=== PATIENT | male | born 1960 | race Caucasian/White ===

== ENCOUNTER → 2016-04-13 | Outpatient (REF) | payer MEDICAID ==
[~2016-04-13] MED LIST: IBUP200C PO; NICO14PA EXT; NORCOTAB PO
== END ==
LOC: M LAB REF 17:59
PROVIDERS: ATTEND Internal Medicine Medical Oncology
DX: C34.90 Malignant neoplasm of unspecified part of unspecified bronchus or lung (principal)

== ENCOUNTER → 2016-05-11 | Outpatient (REF) | payer MEDICARE, MEDICAID | LOC: M LAB REF 17:05 | PROVIDERS: ATTEND Internal Medicine Medical Oncology | DX: C34.90 Malignant neoplasm of unspecified part of unspecified bronchus or lung (principal) ==

== ENCOUNTER → 2016-05-17 | Outpatient (CLI) | payer MEDICARE, MEDICAID ==
[~2016-05-17] MED LIST changes: +ISOVUE-370 76% 100ML VIAL (Q9967) As Ordered ONE
--- NOTE | 2016-05-17 15:05 | REP ---
CT CHEST WITH CONTRAST: 05/17/2016. Clinical history: Lung cancer restaging. Comparison: 12/31/2015, 10/06/2015. Technique: Bolus of 75 ml Isovue 370, scanning through the chest and MIP reformatting with coronal and sagittal reconstructions provided. Findings: Multiple lung nodules, most of which have decreased in size, for example two in the left upper lung zone which now measure 4 mm and 5.8 mm, previously 9.6 and 10 mm respectively. Other nodules in both lungs similarly have decreased in size with the superior segment right lower lobe, 7.5 mm nodule, previously 8.4 mm. Right upper lobe peripherally on image 21 along the posterior axillary line measuring about 9.4 mm, previously 7.4 mm. The 13 mm spiculated nodule in the right upper lobe in the same general region now measures only 12 mm. No effusion, pleural thickening, pleural based plaque or mass. There is no pneumothorax or pneumomediastinum. The heart size is not grossly enlarged. No pericardial thickening or effusion. The aorta without aneurysm or dissection. No pathologic sized mediastinal or hilar adenopathy. Indwelling right subclavian catheter as before, tip in SVC. Thymic remnant in the anterior-superior mediastinum as before. Sternum, manubrium, medial clavicles, scapulae, small portions of the humeral heads, visualized ribs and the thoracic spine without focal lesion. Upper abdomen: The spleen is absent with surgical clips nearby and the pancreas grossly intact. Almost all the liver is included and shows no mass, focal lesion or biliary dilatation. Some folds in the gallbladder near its fundus are noted without calcified stone or mass. Adrenal glands are stable. Impression: Multiple metastatic nodules in the lung mendoza. Almost all of these are smaller than on the previous study. The only exception is a peripheral right upper lobe nodule as described in detail above. There is no effusion, pneumothorax, pneumomediastinum or pathologic sized mediastinal adenopathy. No other finding or interval change. Unreviewed
== END ==
LOC: M RAD 13:14
PROVIDERS: ATTEND Nurse Practitioner Family
DX: C34.90 Malignant neoplasm of unspecified part of unspecified bronchus or lung (principal)
CPT/HCPCS: 71260; 81001; 81050; 84156; Q9967

== ENCOUNTER → 2016-05-27 | Outpatient (REF) | payer MEDICARE, MEDICAID ==
[~2016-05-27] MED LIST changes: -ISOVUE-370 76% 100ML VIAL (Q9967) As Ordered ONE
[2016-05-27 12:52] LABS: ANION GAP 8 MEQ/L (8-16); BLOOD UREA NITROGEN 18 MG/DL (7-18); CALCIUM LEVEL 8.9 MG/DL (8.5-10.1); CARBON DIOXIDE LEVEL 25 MEQ/L (21-32); CHLORIDE LEVEL 109 MEQ/L (98-107); CREATININE FOR GFR 0.85 MG/DL (0.70-1.30); GLOMERULAR FILTRATION RATE > 60.0 (>56); GLUCOSE, FASTING 84 MG/DL (70-105); POTASSIUM SERUM 4.6 MEQ/L (3.5-5.1); SODIUM LEVEL 142 MEQ/L (136-145)
== END ==
LOC: M SFHCPLAZ 12:09
PROVIDERS: ATTEND Nurse Practitioner Family
DX: I10 Essential (primary) hypertension (principal)

== ENCOUNTER 2016-06-08 17:57 | Inpatient (IN) | payer MEDICARE, MEDICAID ==
[~2016-06-08] VITALS: Ht 162.6 cm; Wt 59.5 kg
--- NOTE | 2016-06-08 18:58 | REP ---
CT Head without contrast HISTORY: Altered mental status COMPARISON: None There is no intraparenchymal hemorrhage, acute infarct, mass or midline shift. The ventricular system is normal in appearance. There is no extra cerebral collection. There is no fracture. The visualized sinuses are clear. IMPRESSION: There is no intracranial lesion. Signed by Rik Elizabeth MD 06/08/2016 06:49 P
[2016-06-08] MEDS ORDERED: NS 1,000 ML IV ONE (19:15)
[2016-06-08 19:36] LABS: BASO # 0.1 K/mm3 (0.0-0.2); EOS # 0.2 K/mm3 (0.0-0.50); EOS % 1.3 % (0.0-3.0); LARGE UNSTAINED CELL # 0.2 K/mm3 (0.0-0.4); LARGE UNSTAINED CELL % 1.3 % (0.0-4.0); LYMPH # 1.7 K/mm3 (1.5-4.5); LYMPH % 12.2 % (24.0-44.0); MEAN CORPUSCULAR HEMOGLOBIN 33.5 pg (27.0-33.0); MEAN CORPUSCULAR HGB CONC 34.9 g/dl (32.0-36.5); MEAN CORPUSCULAR VOLUME 96.1 fl (80.0-96.0); MONO # 1.2 K/mm3 (0.0-0.8); MONO % 9.5 % (0.0-5.0); NEUTROPHILS # 9.3 K/mm3 (1.8-7.7); NEUTROPHILS % 74.6 % (36.0-66.0); PLATELET COUNT, AUTOMATED 242 k/mm3 (150-450); RED CELL DISTRIBUTION WIDTH 13.2 % (11.5-14.5); WHITE BLOOD COUNT 12.4 K/mm3 (4.0-10.0)
[2016-06-08 19:41] LABS: VENOUS BASE EXCESS -2.1 (-2.0-2.0); VENOUS O2 SATURATION 84.5 % (60.0-80.0); VENOUS PARTIAL PRESSURE CO2 42.4 mmHg (38.0-50.0); VENOUS STANDARD HCO3 22.4 MEQ/L; VENOUS TOTAL CO2 24.6 MEQ/L (24.0-28.0)
[2016-06-08 20:13] LABS: CONTROL LINE INT CTR LINE PRESENT; METHADONE URINE NEGATIVE (NEGATIVE); TRICYCLIC ANTIDEPRESS URINE NEGATIVE (NEGATIVE)
[2016-06-08 20:28] LABS: ALBUMIN 3.8 GM/DL (3.2-5.2); ALBUMIN/GLOBULIN RATIO 1.19 (1.00-1.93); ALKALINE PHOSPHATASE 91 U/L (45-117); ALT/SGPT 18 U/L (12-78); ANION GAP 8 MEQ/L (8-16); AST/SGOT 12 U/L (15-37); BILIRUBIN,DIRECT 0.1 MG/DL (0.0-0.2); BILIRUBIN,TOTAL 0.4 MG/DL (0.2-1.0); BLOOD UREA NITROGEN 19 MG/DL (7-18); CALCIUM LEVEL 8.5 MG/DL (8.5-10.1); CARBON DIOXIDE LEVEL 24 MEQ/L (21-32); CHLORIDE LEVEL 108 MEQ/L (98-107); CREATININE FOR GFR 0.86 MG/DL (0.70-1.30); GLOMERULAR FILTRATION RATE > 60.0 (>56); GLUCOSE, FASTING 100 MG/DL (70-105); POTASSIUM SERUM 3.8 MEQ/L (3.5-5.1); SODIUM LEVEL 140 MEQ/L (136-145)
[2016-06-08] MEDS ORDERED: LISI40TAB PO (21:40)
[2016-06-08] MEDS ORDERED: OXYC-517 PO (21:40)
[2016-06-09] VITALS (8 sets, daily range): BP systolic 137–179; BP diastolic 85–99
[2016-06-09] MEDS ORDERED: oxyCODONE 5MG TAB PO PRN (00:30)
[2016-06-09] MEDS: hydrALAZINE INJ 20 MG/ML VIAL IV SCH ×2 (04:51→10:00)
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
[2016-06-09] MEDS: LISINOPRIL 40 MG TAB PO SCH (08:35)
--- NOTE | 2016-06-09 08:39 | IPNPDOC ---
Subjective Date Seen The patient was seen on 06/09/16. Subjective Chief Complaint/HPI The patient is a 55-year-old male admitted with a reason for visit of Altered Mental Status. Events since last encounter Pt sleeping but wakes to voice. Confused. Inappropriate responses to questions. Denies pain. Denies SOB. Is not able to state why he is in the hospital. Pulmonary: Denies: Dyspnea Cardiovascular: Denies: Chest Pain Gastrointestinal: Denies: Abdominal Pain Objective Physical Examination General Exam: Positive: Alert, No Acute Distress ENT Exam: Positive: Atraumatic Neck Exam: Positive: Supple, Negative: JVD Chest Exam: Positive: Clear to auscultation Heart Exam: Positive: Rate Normal, Regular Rhythm Abdomen Exam: Positive: Normal bowel sounds, Soft, Negative: Tenderness Extremity Exam: Negative: Edema Neuro Exam: Positive: Sensation Intact, Strength at 5/5 X4 ext Psych Exam: Positive: Other (Confused. Inappropriate responses to questions. Is not able to state why he is in the hospital.) Assessment /Plan Problems (1) Altered mental status Status: Acute Problem Specific Plan: Consult Specialist, Monitor Clinically, Repeat Labs Problem Text: Head CT in the ER was negative. Pt had an MRI brain in December 2015 that was read as negative. Consult neurology. I spoke to Dr Roman who will see the pt. He advises EEG and MRI brain. (2) HTN (hypertension) Status: Chronic Problem Specific Plan: Monitor Clinically Problem Text: On Lisinopril 40 mg daily. On Hydralazine 10 mg IV q 6 hrs to hold if SBP <160. (3) Lung cancer Status: Chronic Problem Specific Plan: Monitor Clinically Problem Text: H/O adenocarcinoma small cell lung cancer. Pt follows with oncology has been receiving chemo. (4) Elevated TSH Status: Acute Problem Specific Plan: Monitor Clinically, Repeat Labs Problem Text: TSH was elevated at 6.930. Was 5.980 in April and was WNL at 1.850 in January 2016. ?acute phase reactant? Plan/VTE VTE Prophylaxis Ordered?: No VS, I&O, 24H, Fishbone Vital Signs/I&O Vital Signs Date Time Temp Pulse Resp B/P Pulse Ox O2 Delivery O2 Flow Rate FiO2 06/09/16 05:36 169/85 06/09/16 04:00 97.2 72 18 94 Room Air I&O- Last 24 Hours up to 6 AM 06/09/16 06:00 Intake Total 1000 ml Output Total 725 ml Balance 275 ml Laboratory Data 24H LABS Laboratory Tests 2 06/08/16 19:26: Acetaminophen Level < 2.0L, Aspartate Amino Transf (AST/SGOT) 12L, Alanine Aminotransferase (ALT/SGPT) 18, Alkaline Phosphatase 91, Total Bilirubin 0.4, Direct Bilirubin 0.1, Albumin 3.8, Albumin/Globulin Ratio 1.19, Ammonia < 10, Anion Gap 8, White Blood Count 12.4H, Red Blood Count 4.38, Hemoglobin 14.7, Hematocrit 42.1, Mean Corpuscular Volume 96.1H, Mean Corpuscular Hemoglobin 33.5H, Mean Corpuscular Hemoglobin Concent 34.9, Red Cell Distribution Width 13.2, Platelet Count 242, Neutrophils (%) (Auto) 74.6H, Lymphocytes (%) (Auto) 12.2L, Monocytes (%) (Auto) 9.5H, Eosinophils (%) (Auto) 1.3, Basophils (%) ( Auto) 1.0, Neutrophils # (Auto) 9.3H, Lymphocytes # (Auto) 1.7, Monocytes # ( Auto) 1.2H, Eosinophils # (Auto) 0.2, Basophils # (Auto) 0.1, Blood Gas Bicarbonate Standard 22.4, Calcium Level 8.5, Creatine Kinase MB 1.3, Creatine Kinase MB Relative Index 1.51, Ethyl Alcohol Level < 0.003, Glomerular Filtration Rate > 60.0, Lactic Acid (Sepsis) 1.3, Large Unclassified Cells # 0.2 , Large Unclassified Cells % 1.3, Salicylates Level 2.9L, Thyroid Stimulating Hormone (TSH) 6.930H, Total Creatine Kinase 86, Total Protein 7.0, Troponin I < 0.02, Venous Blood Base Excess -2.1L, Venous Blood pH 7.358, Venous Blood Partial Pressure CO2 42.4, Venous Blood Partial Pressure O2 46.0, Venous Blood Total Carbon Dioxide 24.6, Venous Blood HCO3 23.3, Venous Blood Oxygen Saturation 84.5H 06/08/16 19:34: Urine Amphetamines Screen NEGATIVE, Urine Benzodiazepines Screen NEGATIVE, Urine Opiates Screen POSITIVEH, Urine Barbiturates Screen NEGATIVE, Urine Cannabinoids Screen NEGATIVE, Urine Cocaine Metabolite Screen NEGATIVE, Urine Methadone Screen NEGATIVE, Urine Tricyclic Antidepressants NEGATIVE CBC/BMP Laboratory Tests 2/28/17 19:26 Red Blood Count 4.38, Mean Corpuscular Volume 96.1 H, Mean Corpuscular Hemoglobin 33.5 H, Mean Corpuscular Hemoglobin Concent 34.9, Red Cell Distribution Width 13.2, Neutrophils (%) (Auto) 74.6 H, Lymphocytes (%) (Auto) 12.2 L, Monocytes (%) (Auto) 9.5 H, Eosinophils (%) (Auto) 1.3, Basophils (%) ( Auto) 1.0, Neutrophils # (Auto) 9.3 H, Lymphocytes # (Auto) 1.7, Monocytes # ( Auto) 1.2 H, Eosinophils # (Auto) 0.2, Basophils # (Auto) 0.1 Microbiology Microbiology 06/08/16 Blood Culture, Received Pending 06/08/16 Influenza Virus Type A Antigen - Final, Complete 06/08/16 Influenza Virus Type B Antigen - Final, Complete Augusto Gilbert Jun 09, 2016 08:39
[2016-06-09 08:41] LABS: BASO # 0.1 K/mm3 (0.0-0.2); BASO % 0.7 % (0.0-1.0); EOS # 0.2 K/mm3 (0.0-0.50); EOS % 1.4 % (0.0-3.0); LARGE UNSTAINED CELL # 0.3 K/mm3 (0.0-0.4); LARGE UNSTAINED CELL % 2.3 % (0.0-4.0); LYMPH # 1.8 K/mm3 (1.5-4.5); LYMPH % 16.9 % (24.0-44.0); MEAN CORPUSCULAR HEMOGLOBIN 31.4 pg (27.0-33.0); MEAN CORPUSCULAR HGB CONC 33.3 g/dl (32.0-36.5); MEAN CORPUSCULAR VOLUME 94.2 fl (80.0-96.0); MONO # 0.7 K/mm3 (0.0-0.8); MONO % 6.8 % (0.0-5.0); NEUTROPHILS # 7.7 K/mm3 (1.8-7.7); NEUTROPHILS % 71.9 % (36.0-66.0); PLATELET COUNT, AUTOMATED 237 k/mm3 (150-450); RED CELL DISTRIBUTION WIDTH 12.8 % (11.5-14.5); WHITE BLOOD COUNT 10.7 K/mm3 (4.0-10.0)
[2016-06-09 08:54] LABS: ALBUMIN 3.6 GM/DL (3.2-5.2); ALBUMIN/GLOBULIN RATIO 1.16 (1.00-1.93); ALKALINE PHOSPHATASE 90 U/L (45-117); ALT/SGPT 17 U/L (12-78); ANION GAP 10 MEQ/L (8-16); AST/SGOT 17 U/L (15-37); BILIRUBIN,TOTAL 0.6 MG/DL (0.2-1.0); BLOOD UREA NITROGEN 13 MG/DL (7-18); CALCIUM LEVEL 8.6 MG/DL (8.5-10.1); CARBON DIOXIDE LEVEL 23 MEQ/L (21-32); CHLORIDE LEVEL 111 MEQ/L (98-107); CREATININE FOR GFR 0.66 MG/DL (0.70-1.30); GLOMERULAR FILTRATION RATE > 60.0 (>56); GLUCOSE, FASTING 87 MG/DL (70-105); POTASSIUM SERUM 3.9 MEQ/L (3.5-5.1); SODIUM LEVEL 144 MEQ/L (136-145); TOTAL PROTEIN 6.7 GM/DL (6.4-8.2)
--- NOTE | 2016-06-09 08:56 | REP ---
TWO VIEW CHEST: Two views of the chest are performed and compared to prior study of 07/17/2013. I see no evidence of acute infiltrate. Small subtle nodular opacities are seen in the upper lobes, as seen on recent CT scan of 05/17/2016. Heart is mildly enlarged and there is pulmonary venous hypertension. Mediastinal silhouette is unremarkable. Left MediPort catheter is seen with the tip in the superior vena cava. There are mild degenerative changes of the spine. Metallic clips are seen in the left upper quadrant of the abdomen. IMPRESSION: Mild cardiomegaly and pulmonary venous hypertension without evidence of acute infiltrate. Signed by Chano Villafuerte MD 06/09/2016 05:15 P
--- NOTE | 2016-06-09 10:44 | ECGEPIP ---
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
--- NOTE | 2016-06-09 13:47 | REP ---
MR BRAIN WITHOUT AND WITH CONTRAST: HISTORY: Lung carcinoma. Contrast: ProHance 12.4 mL. COMPARISON: 12/26/2015 Small areas of increased signal intensity on diffusion and T2-weighted images are present in the left temporal and parietal lobes. These are decreased in signal intensity on ADC images and are consistent with acute infarctions. There is no hemorrhage. Scattered punctate areas of increased signal intensity on T2-weighted images are present in the periventricular and subcortical white matter. This represents small vessel ischemic disease. There is no intraparenchymal mass or midline shift. There is no abnormal enhancement. The ventricular system and cortical sulci are dilated consistent with minimal volume loss. There is no extracerebral collection. Mucosal thickening is present in the left maxillary sinus. IMPRESSION: 1. There are small acute infarctions in the left temporal and parietal lobes. There is no hemorrhage. 2. Minimal small vessel ischemic disease. 3. Minimal volume loss. Signed by Rik Elizabeth MD 06/09/2016 01:51 P
[2016-06-09 15:50] LABS: CHOLESTEROL LEVEL 241 MG/DL (<200); TRIGLYCERIDES LEVEL 66 MG/DL (<150)
[2016-06-09] MEDS: ATORVASTATIN 20 MG TAB PO SCH (16:09)
[2016-06-09] MEDS: amLODIPine 5 MG TAB PO SCH (16:10)
[2016-06-09] MEDS ORDERED: ENOXAPARIN 40 MG/0.4 ML SYRINGE (J1650) SC ONE (16:45)
[2016-06-09] MEDS: ASPIRIN 325 MG TAB PO SCH (16:51)
--- NOTE | 2016-06-09 17:26 | IPN ---
DATE: 06/09/2016 Chano is seen in intensive care unit (ICU) as progressive care unit (PCU) overflow. He was admitted with expressive aphasia. MRI scan has confirmed stroke in the left temporal and parietal lobes without hemorrhage. Patient has no history of atrial fibrillation. He does have active cancer which puts him at increased risk of embolism or thrombosis. PHYSICAL EXAMINATION: Vital signs are stable, blood pressure 157/97, pulse 93. No facial droop or weakness. Normal strength in the arms and legs. No pronator drift. Normal box toe cutter strength. Heart regular rate and rhythm, telemetry shows strict sinus rhythm. Lungs clear. Abdomen soft and nontender. Has expressive aphasia. He is not able to name devices such as a pen or a watch but can describe them functionally as "tell time with it" or "write with it." Per his father, who is in the room, his expressive aphasia has gotten better and he is able to speak better than he could this morning. IMPRESSION: 1. Stroke with expressive aphasia. He does have atrial fibrillation, I am not sure if this embolic or thrombotic. I am starting him on aspirin 325 mg daily, high intensity statin, and I am adjusting his blood pressure medicines for a systolic blood pressure of approximately 130-140. Speech therapy has been ordered. Neurology has been consulted. 2. Lung cancer. He has a history of non-small cell lung cancer. Getting chemotherapy from oncology in [place]. 3. Elevated thyroid stimulating hormone (TSH). Will get a free T4 as an outpatient. I would not address this while he is currently here. 4. Hyperlipidemia. We have started a high intensity statin because of his stroke. A lipid profile was drawn and it shows a low-density lipoprotein (LDL) cholesterol of 174, so high intensity statin is warranted because of that as well. Probably discharge in a day or two depending on how his speech improves.
[2016-06-10] VITALS (8 sets, daily range): BP systolic 135–180; BP diastolic 84–97
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
[2016-06-10 05:00] LABS: BASO # 0.1 K/mm3 (0.0-0.2); BASO % 1.1 % (0.0-1.0); EOS # 0.3 K/mm3 (0.0-0.50); EOS % 3.7 % (0.0-3.0); LARGE UNSTAINED CELL # 0.4 K/mm3 (0.0-0.4); LARGE UNSTAINED CELL % 4.4 % (0.0-4.0); LYMPH # 2.1 K/mm3 (1.5-4.5); LYMPH % 25.4 % (24.0-44.0); MEAN CORPUSCULAR HEMOGLOBIN 31.6 pg (27.0-33.0); MEAN CORPUSCULAR HGB CONC 33.7 g/dl (32.0-36.5); MEAN CORPUSCULAR VOLUME 93.8 fl (80.0-96.0); MONO # 0.8 K/mm3 (0.0-0.8); MONO % 10.1 % (0.0-5.0); NEUTROPHILS # 4.6 K/mm3 (1.8-7.7); NEUTROPHILS % 55.3 % (36.0-66.0); PLATELET COUNT, AUTOMATED 240 k/mm3 (150-450); RED CELL DISTRIBUTION WIDTH 12.9 % (11.5-14.5); WHITE BLOOD COUNT 8.2 K/mm3 (4.0-10.0)
[2016-06-10 05:28] LABS: ALBUMIN 3.4 GM/DL (3.2-5.2); ALBUMIN/GLOBULIN RATIO 1.03 (1.00-1.93); ALKALINE PHOSPHATASE 81 U/L (45-117); ALT/SGPT 18 U/L (12-78); ANION GAP 8 MEQ/L (8-16); AST/SGOT 17 U/L (15-37); BILIRUBIN,TOTAL 0.6 MG/DL (0.2-1.0); BLOOD UREA NITROGEN 15 MG/DL (7-18); CARBON DIOXIDE LEVEL 24 MEQ/L (21-32); CHLORIDE LEVEL 112 MEQ/L (98-107); CREATININE FOR GFR 0.72 MG/DL (0.70-1.30); GLOMERULAR FILTRATION RATE > 60.0 (>56); GLUCOSE, FASTING 87 MG/DL (70-105); POTASSIUM SERUM 3.8 MEQ/L (3.5-5.1); SODIUM LEVEL 144 MEQ/L (136-145); TOTAL PROTEIN 6.7 GM/DL (6.4-8.2)
--- NOTE | 2016-06-10 07:53 | IPNPDOC ---
Subjective Date Seen The patient was seen on 06/10/16. Subjective Chief Complaint/HPI The patient is a 55-year-old male admitted with a reason for visit of Altered Mental Status. Events since last encounter Pt still with some confusion- receptive/expressive aphasia. Denies pain, SOB, CP. Pulmonary: Denies: Dyspnea Cardiovascular: Denies: Chest Pain Gastrointestinal: Denies: Abdominal Pain Objective Physical Examination General Exam: Positive: Alert, No Acute Distress ENT Exam: Positive: Atraumatic Neck Exam: Positive: Supple, Negative: JVD Chest Exam: Positive: Clear to auscultation Heart Exam: Positive: Rate Normal, Regular Rhythm Abdomen Exam: Positive: Normal bowel sounds, Soft, Negative: Tenderness Extremity Exam: Negative: Edema Neuro Exam: Positive: Other, Sensation Intact, Strength at 5/5 X4 ext Psych Exam: Positive: Other (Confused. Inappropriate responses to questions. Receptive/expressive aphasia) Other physical findings : his expressive aphasia is much better--yesterday could not name place, watch, pen (used descriptive terms, could not name). Today names all 3. Still word substituting--"Stone" for phone Assessment /Plan Problems (1) Acute ischemic stroke Status: Acute Problem Text: 06/10 - MRI Brain: "Small acute infarctions in the left temporal and parietal lobes. No hemorrhage. Minimal small vessel ischemic disease. Minimal volume loss." Neurology following. Started on Aspirin. Will order PT/OT. Continue to advise smoking cessation. JFW: attempted to call his oncologist to update, no onco records in [facility] and pt can't name his oncologist. (2) Altered mental status Status: Acute Problem Specific Plan: Consult Specialist, Monitor Clinically, Repeat Labs Problem Text: 06/10 - MRI Brain: "Small acute infarctions in the left temporal and parietal lobes. No hemorrhage. Minimal small vessel ischemic disease. Minimal volume loss." Neurology following. Started on Aspirin. Will order PT/OT. 06/09 - Head CT in the ER was negative. Pt had an MRI brain in December 2015 that was read as negative. Consult neurology. I spoke to Dr Roman who will see the pt. He advises EEG and MRI brain. (3) HTN (hypertension) Status: Chronic Problem Specific Plan: Monitor Clinically Problem Text: 06/10 - On Lisinopril 40 mg daily. On Amlodipine 5 mg daily. ( Hydralazine was d/c'ed). 06/09 - On Lisinopril 40 mg daily. On Hydralazine 10 mg IV q 6 hrs to hold if SBP <160. (4) Lung cancer Status: Chronic Problem Specific Plan: Monitor Clinically Problem Text: H/O adenocarcinoma small cell lung cancer. Pt follows with oncology has been receiving chemo. (5) Elevated TSH Status: Acute Problem Specific Plan: Monitor Clinically, Repeat Labs Problem Text: TSH was elevated at 6.930. Was 5.980 in April and was WNL at 1.850 in January 2016. ?acute phase reactant? Plan/VTE VTE Prophylaxis Ordered?: Yes (Lovenox) VS, I&O, 24H, Fishbone Vital Signs/I&O Vital Signs Date Time Temp Pulse Resp B/P Pulse Ox O2 Delivery O2 Flow Rate FiO2 06/10/16 04:00 97.2 73 20 166/84 95 Room Air I&O- Last 24 Hours up to 6 AM 06/10/16 06:00 Intake Total 900 ml Output Total 1250 ml Balance -350 ml Laboratory Data 24H LABS Laboratory Tests 2 06/09/16 08:19: Blood Urea Nitrogen 13, Creatinine 0.66L, Sodium Level 144, Potassium Level 3.9 , Chloride Level 111H, Carbon Dioxide Level 23, Calcium Level 8.6, Aspartate Amino Transf (AST/SGOT) 17, Alanine Aminotransferase (ALT/SGPT) 17, Alkaline Phosphatase 90, Total Bilirubin 0.6, Triglycerides Level 66, Cholesterol Level 241H, HDL Cholesterol 53, LDL Cholesterol 174.8H, Total Protein 6.7, Albumin 3.6 , Albumin/Globulin Ratio 1.16, Anion Gap 10, White Blood Count 10.7H, Red Blood Count 4.49, Hemoglobin 14.1, Hematocrit 42.3, Mean Corpuscular Volume 94.2, Mean Corpuscular Hemoglobin 31.4, Mean Corpuscular Hemoglobin Concent 33.3, Red Cell Distribution Width 12.8, Platelet Count 237, Neutrophils (%) (Auto) 71.9H, Lymphocytes (%) (Auto) 16.9L, Monocytes (%) (Auto) 6.8H, Eosinophils (%) (Auto) 1.4, Basophils (%) (Auto) 0.7, Neutrophils # (Auto) 7.7, Lymphocytes # (Auto) 1.8, Monocytes # (Auto) 0.7, Eosinophils # (Auto) 0.2, Basophils # (Auto) 0.1, Cholesterol/HDL Ratio 4.547, Glomerular Filtration Rate > 60.0, Large Unclassified Cells # 0.3, Large Unclassified Cells % 2.3, Non-HDL Cholesterol ( LDL + VLDL) 188 06/10/16 04:46: Blood Urea Nitrogen 15, Creatinine 0.72, Sodium Level 144, Potassium Level 3.8, Chloride Level 112H, Carbon Dioxide Level 24, Calcium Level 8.0L, Aspartate Amino Transf (AST/SGOT) 17, Alanine Aminotransferase (ALT/SGPT) 18, Alkaline Phosphatase 81, Total Bilirubin 0.6, Total Protein 6.7, Albumin 3.4, Albumin/ Globulin Ratio 1.03, Anion Gap 8, White Blood Count 8.2, Red Blood Count 4.48, Hemoglobin 14.2, Hematocrit 42.0, Mean Corpuscular Volume 93.8, Mean Corpuscular Hemoglobin 31.6, Mean Corpuscular Hemoglobin Concent 33.7, Red Cell Distribution Width 12.9, Platelet Count 240, Neutrophils (%) (Auto) 55.3, Lymphocytes (%) (Auto) 25.4, Monocytes (%) (Auto) 10.1H, Eosinophils (%) (Auto) 3.7H, Basophils (%) (Auto) 1.1H, Neutrophils # (Auto) 4.6, Lymphocytes # (Auto) 2.1, Monocytes # (Auto) 0.8, Eosinophils # (Auto) 0.3, Basophils # (Auto) 0.1, Glomerular Filtration Rate > 60.0, Large Unclassified Cells # 0.4, Large Unclassified Cells % 4.4H CBC/BMP Laboratory Tests 06/09/16 08:19 Calcium Level 8.6, Aspartate Amino Transf (AST/SGOT) 17, Alanine Aminotransferase (ALT/SGPT) 17, Alkaline Phosphatase 90, Total Bilirubin 0.6, Triglycerides Level 66, Cholesterol Level 241 H, HDL Cholesterol 53, LDL Cholesterol 174.8 H, Total Protein 6.7, Albumin 3.6, Red Blood Count 4.49, Mean Corpuscular Volume 94.2, Mean Corpuscular Hemoglobin 31.4, Mean Corpuscular Hemoglobin Concent 33.3, Red Cell Distribution Width 12.8, Neutrophils (%) (Auto ) 71.9 H, Lymphocytes (%) (Auto) 16.9 L, Monocytes (%) (Auto) 6.8 H, Eosinophils (%) (Auto) 1.4, Basophils (%) (Auto) 0.7, Neutrophils # (Auto) 7.7, Lymphocytes # (Auto) 1.8, Monocytes # (Auto) 0.7, Eosinophils # (Auto) 0.2, Basophils # (Auto) 0.1 06/10/16 04:46 Calcium Level 8.0 L, Aspartate Amino Transf (AST/SGOT) 17, Alanine Aminotransferase (ALT/SGPT) 18, Alkaline Phosphatase 81, Total Bilirubin 0.6, Total Protein 6.7, Albumin 3.4, Red Blood Count 4.48, Mean Corpuscular Volume 93.8, Mean Corpuscular Hemoglobin 31.6, Mean Corpuscular Hemoglobin Concent 33.7 , Red Cell Distribution Width 12.9, Neutrophils (%) (Auto) 55.3, Lymphocytes (% ) (Auto) 25.4, Monocytes (%) (Auto) 10.1 H, Eosinophils (%) (Auto) 3.7 H, Basophils (%) (Auto) 1.1 H, Neutrophils # (Auto) 4.6, Lymphocytes # (Auto) 2.1, Monocytes # (Auto) 0.8, Eosinophils # (Auto) 0.3, Basophils # (Auto) 0.1 Microbiology Microbiology 06/08/16 Blood Culture - Preliminary, Resulted No growth after 24 hours . All specim... 06/08/16 Influenza Virus Type A Antigen - Final, Complete 06/08/16 Influenza Virus Type B Antigen - Final, Complete Augusto Gilbert Jun 10, 2016 07:53 Sadiq Leal MD Jun 10, 2016 15:39
[2016-06-10] MEDS: LISINOPRIL 40 MG TAB PO SCH (08:07)
[2016-06-10] MEDS: amLODIPine 5 MG TAB PO SCH (08:07)
[2016-06-10] MEDS: ASPIRIN 325 MG TAB PO SCH (08:07)
[2016-06-10] MEDS: ATORVASTATIN 20 MG TAB PO SCH (08:07)
[2016-06-10] MEDS ORDERED: ENOXAPARIN 40 MG/0.4 ML SYRINGE (J1650) SC SCH (09:00)
--- NOTE | 2016-06-10 10:25 | REP ---
DUPLEX CAROTID SONOGRAPHY: HISTORY: Stroke. FINDINGS: Antegrade flow is observed in both vertebral arteries. RIGHT CAROTID: The right common carotid artery shows mild diffuse intimal thickening. There is minimal mixed plaquing in the bulb and proximal ICA on the right side. Color flow and spectral Doppler interrogation are unremarkable on the right. VELOCITY CHART RIGHT CAROTID: Right CCA PSV 99 cm/s Right ICA PSV 59 EDV 30 Right ECA PSV 86 Right ICA/CCA ratio normal 0.6 IMPRESSION: 0-15% category narrowing in the right ICA. LEFT CAROTID: There is mild diffuse intimal thickening in the common carotid artery on the left side. Mild mixed plaquing is seen circumferentially in the bulb and proximal ICA on two-dimensional scanning on the left side. Color flow and spectral Doppler interrogation are unremarkable on the left. VELOCITY CHART LEFT CAROTID: Left CCA PSV 108 cm/s Left ICA PSV 67 EDV LIZ 29 Left ECA PSV 127 Left ICA/CCA ratio normal 0.6 IMPRESSION: 0-15% category narrowing in the left ICA by Doppler velocity criteria. Signed by Ifeanyi Day MD 06/10/2016 01:28 P
[2016-06-10] MEDS ORDERED: SLF 3 ML SYR IV PRN (13:30)
[2016-06-10] MEDS: SLF 3 ML SYR IV SCH ×2 (15:09→21:06)
--- NOTE | 2016-06-10 16:00 | REP ---
MRA BRAIN WITHOUT CONTRAST: HISTORY: Infarction. 3D [id number] MR angiography was performed at the level of the [place]. There is no aneurysm or arteriovenous malformation. Mild arthrosclerotic disease involves the cavernous left internal carotid artery. There is loss of the normal hyperintense signal in a segment of a proximal branch of the left middle cerebral artery. This is secondary to severe stenosis. There is loss of the normal hyperintense signal in a proximal branch of the left middle cerebral artery approximately 1 cm from it origin consistent with occlusion. Remaining major intracranial vessels are patent. The left vertebral artery is dominant. IMPRESSION:1. There is no aneurysm or arteriovenous malformation. 2. Atherosclerotic disease as described above. Signed by Rik Elizabeth MD 06/10/2016 04:06 P
--- NOTE | 2016-06-10 18:09 | ECHO ---
DATE OF PROCEDURE: 06/09/2016 REFERRING PHYSICIAN: Dr. Leal HEIGHT: 163 cm WEIGHT: 62 kg. DIMENSIONS: IVS: 1.3 LV: 4.5 LVPW: 1.3 LA: 4.0 Aorta: 3.3 FINDINGS: The study is of good technical quality. Left ventricle is of normal size and systolic function with estimated ejection fraction (EF) 65-70%. Right ventricle is normal size and function. Both atria appear normal. Aortic, tricuspid and pulmonic valves appear normal. Mitral valve exhibits mild thickening in anterior mitral leaflet in the area where anterior mitral leaflet touches ventricular septum during systole. Mobility of the leaflets is preserved. No pericardial effusion is noted. Inferior vena cava is upper limits of normal values, but appropriately collapses with respiration. Aortic root is normal. Aortic arch and abdominal aorta were not well seen. Doppler interrogation reveals no significant aortic disease. There is trace mitral insufficiency and trace tricuspid insufficiency. Calculated pulmonary artery pressure is within normal limits. Pulmonic valve is functionally competent. CONCLUSIONS: 1. Study is of good technical quality. 2. Normal left ventricle (LV) size and systolic function, grade 1 diastolic dysfunction. 3. No hemodynamically significant valvular disease. 4. Probably normal central venous pressure and pulmonary artery pressure. 5. Mild thickening in anterior mitral leaflet, unlikely to be of clinical significance. COMMENTS: Subacute bacterial endocarditis (SBE) prophylaxis is not recommended.
[2016-06-11] MEDS: SLF 3 ML SYR IV SCH (03:54)
[2016-06-11 04:00] VITALS: BP 150/94
[2016-06-11 05:47] LABS: ALBUMIN 3.4 GM/DL (3.2-5.2); ALBUMIN/GLOBULIN RATIO 0.94 (1.00-1.93); ALKALINE PHOSPHATASE 85 U/L (45-117); ALT/SGPT 19 U/L (12-78); ANION GAP 7 MEQ/L (8-16); AST/SGOT 19 U/L (15-37); BILIRUBIN,TOTAL 0.4 MG/DL (0.2-1.0); BLOOD UREA NITROGEN 17 MG/DL (7-18); CALCIUM LEVEL 8.2 MG/DL (8.5-10.1); CARBON DIOXIDE LEVEL 25 MEQ/L (21-32); CHLORIDE LEVEL 110 MEQ/L (98-107); GLOMERULAR FILTRATION RATE > 60.0 (>56); GLUCOSE, FASTING 92 MG/DL (70-105); SODIUM LEVEL 142 MEQ/L (136-145)
[2016-06-11 05:54] LABS: BASO # 0.1 K/mm3 (0.0-0.2); EOS # 0.4 K/mm3 (0.0-0.50); EOS % 3.9 % (0.0-3.0); LARGE UNSTAINED CELL # 0.5 K/mm3 (0.0-0.4); LARGE UNSTAINED CELL % 5.2 % (0.0-4.0); LYMPH # 2.2 K/mm3 (1.5-4.5); LYMPH % 22.7 % (24.0-44.0); MEAN CORPUSCULAR HEMOGLOBIN 31.6 pg (27.0-33.0); MEAN CORPUSCULAR HGB CONC 33.1 g/dl (32.0-36.5); MEAN CORPUSCULAR VOLUME 95.4 fl (80.0-96.0); MONO # 1.1 K/mm3 (0.0-0.8); NEUTROPHILS # 5.2 K/mm3 (1.8-7.7); NEUTROPHILS % 55.3 % (36.0-66.0); PLATELET COUNT, AUTOMATED 234 k/mm3 (150-450); RED CELL DISTRIBUTION WIDTH 12.9 % (11.5-14.5); WHITE BLOOD COUNT 9.5 K/mm3 (4.0-10.0)
[2016-06-11 08:00] VITALS: BP 163/89
[2016-06-11] MEDS ORDERED: ASPI325T PO (08:09)
[2016-06-11] MEDS ORDERED: AMLO5TAB2 PO (08:09)
[2016-06-11] MEDS ORDERED: ATOR1TAB21 PO (08:09)
[2016-06-11] MEDS ORDERED: LEVO25TA5 PO (08:26)
[2016-06-11] MEDS: ASPIRIN 325 MG TAB PO SCH (09:45)
[2016-06-11] MEDS: LISINOPRIL 40 MG TAB PO SCH (09:45)
[2016-06-11] MEDS: ATORVASTATIN 20 MG TAB PO SCH (09:45)
[2016-06-11 09:46] VITALS: BP 163/89
[2016-06-11] MEDS: amLODIPine 5 MG TAB PO SCH (09:46)
--- NOTE | 2016-06-11 13:26 | EEG ---
DATE OF PROCEDURE: 06/10/2016 DIAGNOSIS: Altered mental status. EEG NUMBER: [id number] HISTORY: Patient is a 55-year-old man who was admitted at [facility] due to sudden onset of speech difficulty. The patient had expressive aphasia. This EEG was done to rule out epileptic potential. Current list of his medications was not provided. TECHNICAL DESCRIPTION: This digital EEG was recorded by 21 scalp, ear and two EKG electrodes and was reviewed in bipolar and referential montages following reformatting in 10-20 International Electrode Placement System. INTERPRETATION: The patient was noted to be in awake and drowsy states during this EEG. Resting awake background consisted of 9 Hz alpha activity measuring 15 - 30 microvolts in amplitude, which was symmetric and reactive to eye opening. Attenuation of posterior dominant was seen during transition into drowsiness. No sleep was achieved. Hyperventilation could not be performed as the patient is unable to follow commands. Photic stimulation remained unremarkable. EKG revealed normal sinus rhythm. No focal, lateralizing or epileptiform abnormalities were seen. No clinical or electrographic seizures were recorded. Excessive muscle artifact was seen in bilateral frontal and temporal head regions. CONCLUSION This EEG in awake and drowsy states is within normal limits. Excessive muscle artifact was noted as described above.
--- NOTE | 2016-06-12 08:20 | DSES ---
DATE OF ADMISSION: 06/08/2016 DATE OF DISCHARGE: 06/11/2016 BRIEF HISTORY AND PHYSICAL: The patient is a 55-year-old patient of [facility] who presented with altered mental status. He has a history of adenocarcinoma and small cell lung cancer undergoing chemotherapy which he had on the morning of the admission. He presented with inability to answer questions clearly and difficulty understanding questions or following commands. PAST MEDICAL HISTORY: Significant for: Lung cancer and adenocarcinoma small cell, chronic pain on chronic narcotic analgesics followed by Dr. Shukla. Hypertension. Hyperlipidemia. Pertinent labs on admission: White count 12.4, hemoglobin 14.7, platelets 242,000. Sodium 140, potassium 3.8, BUN 19, creatinine 0.86. Liver enzymes were normal. TSH is 6.93. Toxicology screen was positive for opiates and a low dose amount of salicylates which were expected. A CT of the head was unremarkable. Chest x-ray was negative. HOSPITAL COURSE: The patient was admitted for altered mental status which ultimately was determined to be expressive and receptive aphagia secondary to an acute left temporal and parietal lobe infarct. HOSPITAL COURSE: 1. Acute left temporal and parietal lobe infarct. He was admitted to PCU monitored on telemetry. He had no events on telemetry, no arrhythmia. No atrial fibrillation. He underwent workup that included MRI of the brain that revealed small acute infarctions in the left temporal and parietal lobes with no hemorrhage, minimal small vessel ischemic disease and minimal volume loss. Carotid ultrasound showed 0 to 15% narrowing bilaterally without clinically significant stenosis. MRA of the brain showed no aneurysms or AV malformations. He has atherosclerotic disease with loss of normal hyperintense signal in the proximal branch of left MCA 1 cm from its origin consistent with occlusion. Echocardiogram showed normal left ventricular size and systolic function, grade 1 diastolic dysfunction. No hemodynamically significant valvular disease, probably normal central venous pressure and pulmonary artery pressure, mild thickening of the anterior mitral leaflet unlikely to be of clinical significance. The patient was seen by neurology. Full dose aspirin was recommended as well as high intensity statin therapy and amlodipine has been added for his blood pressure, however, it is recommended that for the first few days post CVA, his blood pressure should remain between 140 and 160 which it has essentially done. His blood pressure at the time of discharge is 150/94. He will be discharged home on lisinopril 40 mg daily, Norvasc 5 mg daily and follow up early next week with [facility] at which point, blood pressure medications should be adjusted to achieve tighter blood pressure control per guidelines. 2. Hyperlipidemia. The patient has a known history of hyperlipidemia but because she is undergoing chemotherapy, the risk of using statin therapy in this patient was felt to be higher than the benefit at that time. However, now that he has had an acute stroke, statin therapy has been initiated with high-dose atorvastatin 80 mg daily and his liver enzymes will need to be monitored. 3. History of lung cancer undergoing chemotherapy per Dr. Shukla. 4. Chronic pain. He is on oxycodone chronically as an outpatient and this has been continued per previous dosing. 5. Elevated TSH. Review of his blood work shows that he had an elevated TSH in April and now has another elevated TSH at this point confirming hypothyroidism and he will be started on a low dose of levothyroxine and he will need followup of his levels in 6-8 weeks after initiation of the levothyroxine. DISPOSITION: He is stable for discharge home. He will have a public health nurse referral to assure that he is able to manage his medications and he will have speech therapy to further work on his expressive and receptive aphasia which have improved but are still present to some extent. MEDICATIONS: - lisinopril 40 mg daily - Norvasc 5 mg day - Lipitor 80 mg daily - aspirin 325 mg daily - oxycodone 5 mg every 4 hours as needed for pain Tests that are still pending. EEG was performed yesterday. Results are pending. He should follow up with [facility] early next week. Followup with neurology per their office. DISCHARGE DIAGNOSES: 1. Acute left temporal and parietal lobe infarcts secondary to MCA occlusion. 2. Hypertension. 3. Hyperlipidemia. 4. Elevated TSH. 5. History of adenocarcinoma of the lung receiving chemotherapy. 6. Chronic pain on chronic narcotic analgesics.
== END 2016-06-11 11:10 | disposition home health service (06) | DRG 65 ==
LOC: EDBD 17:57 → M ED 20:50 → M ED INP 22:45 → M ICU 06-09 00:42 → M PCU 06-10 12:49
PROVIDERS: ADMIT Internal Medicine; ATTEND Family Medicine
DX: I63.512 Cerebral infarction due to unspecified occlusion or stenosis of left middle cerebral artery (principal); C34.90 Malignant neoplasm of unspecified part of unspecified bronchus or lung; I10 Essential (primary) hypertension; E78.5 Hyperlipidemia, unspecified; I69.320 Aphasia following cerebral infarction; G89.3 Neoplasm related pain (acute) (chronic); I48.91 Unspecified atrial fibrillation; F10.21 Alcohol dependence, in remission; R94.6 Abnormal results of thyroid function studies; F17.210 Nicotine dependence, cigarettes, uncomplicated; Z95.828 Presence of other vascular implants and grafts; Z92.21 Personal history of antineoplastic chemotherapy; Z79.899 Other long term (current) drug therapy

== ENCOUNTER → 2016-06-25 | Outpatient (REF) | payer MEDICAID ==
[~2016-06-25] MED LIST changes: +AMLO5TAB2 PO; +ASPI325T PO; +ATOR1TAB21 PO; +LEVO25TA5 PO; +LISI40TAB PO; +OXYC-517 PO
[2016-06-25 13:52] LABS: ALBUMIN 3.9 GM/DL (3.2-5.2); ALBUMIN/GLOBULIN RATIO 1.18 (1.00-1.93); ALKALINE PHOSPHATASE 92 U/L (45-117); ALT/SGPT 23 U/L (12-78); ANION GAP 13 MEQ/L (8-16); AST/SGOT 17 U/L (15-37); BILIRUBIN,TOTAL 0.4 MG/DL (0.2-1.0); BLOOD UREA NITROGEN 14 MG/DL (7-18); CARBON DIOXIDE LEVEL 24 MEQ/L (21-32); CHLORIDE LEVEL 107 MEQ/L (98-107); CREATININE FOR GFR 0.74 MG/DL (0.70-1.30); FREE T4 1.19 NG/DL (0.76-1.46); GLOMERULAR FILTRATION RATE > 60.0 (>56); GLUCOSE, FASTING 84 MG/DL (70-105); POTASSIUM SERUM 4.2 MEQ/L (3.5-5.1); SODIUM LEVEL 144 MEQ/L (136-145); TOTAL PROTEIN 7.2 GM/DL (6.4-8.2)
== END ==
LOC: M SFHCPLAZ 10:28
PROVIDERS: ATTEND Nurse Practitioner Family
DX: E78.5 Hyperlipidemia, unspecified (principal); E03.9 Hypothyroidism, unspecified

== ENCOUNTER → 2016-07-20 | Outpatient (REF) | payer MEDICARE, MEDICAID ==
[2016-07-20 20:28] LABS: FREE T4 1.14 NG/DL (0.76-1.46)
== END ==
LOC: M LAB REF 16:34
PROVIDERS: ATTEND Internal Medicine Medical Oncology
DX: C18.0 Malignant neoplasm of cecum (principal)

== ENCOUNTER → 2016-08-16 | Outpatient (REF) | payer MEDICARE, MEDICAID ==
[2016-08-16 12:21] LABS: ALBUMIN 3.6 GM/DL (3.2-5.2); ALKALINE PHOSPHATASE 77 U/L (45-117); ALT/SGPT 30 U/L (12-78); ANION GAP 6 MEQ/L (8-16); AST/SGOT 18 U/L (15-37); BILIRUBIN,TOTAL 0.5 MG/DL (0.2-1.0); BLOOD UREA NITROGEN 27 MG/DL (7-18); CALCIUM LEVEL 8.5 MG/DL (8.5-10.1); CARBON DIOXIDE LEVEL 26 MEQ/L (21-32); CHLORIDE LEVEL 110 MEQ/L (98-107); CREATININE FOR GFR 0.78 MG/DL (0.70-1.30); FREE T4 1.04 NG/DL (0.76-1.46); GLOMERULAR FILTRATION RATE > 60.0 (>56); GLUCOSE, FASTING 80 MG/DL (70-105); POTASSIUM SERUM 4.6 MEQ/L (3.5-5.1); SODIUM LEVEL 142 MEQ/L (136-145); TOTAL PROTEIN 6.6 GM/DL (6.4-8.2)
== END ==
LOC: M SFHCPLAZ 09:27
PROVIDERS: ATTEND Nurse Practitioner Family
DX: I10 Essential (primary) hypertension (principal); E03.9 Hypothyroidism, unspecified

== ENCOUNTER → 2016-08-17 | Outpatient (REF) | payer MEDICARE, MEDICAID | LOC: M LAB REF 16:29 | PROVIDERS: ATTEND Internal Medicine Medical Oncology | DX: C34.90 Malignant neoplasm of unspecified part of unspecified bronchus or lung (principal); E03.9 Hypothyroidism, unspecified ==

== ENCOUNTER → 2016-09-28 | Outpatient (REF) | payer MEDICARE, MEDICAID ==
[2016-09-28 18:04] LABS: FREE T4 1.23 NG/DL (0.76-1.46)
== END ==
LOC: M LAB REF 16:43
PROVIDERS: ATTEND Internal Medicine Medical Oncology
DX: C34.90 Malignant neoplasm of unspecified part of unspecified bronchus or lung (principal); E05.90 Thyrotoxicosis, unspecified without thyrotoxic crisis or storm

== ENCOUNTER → 2016-11-09 | Outpatient (REF) | payer MEDICARE, MEDICAID ==
[2016-11-09 19:39] LABS: FREE T4 1.2 NG/DL (0.76-1.46)
== END ==
LOC: M LAB REF 16:41
PROVIDERS: ATTEND Internal Medicine Medical Oncology
DX: C34.90 Malignant neoplasm of unspecified part of unspecified bronchus or lung (principal); Z79.899 Other long term (current) drug therapy

== ENCOUNTER → 2016-11-22 | Outpatient (REF) | payer MEDICAID, MEDICARE ==
[2016-11-22 20:48] LABS: FREE T4 1.28 NG/DL (0.76-1.46)
== END ==
LOC: M SFHCPLAZ 18:10
PROVIDERS: ATTEND Nurse Practitioner Family
DX: E03.9 Hypothyroidism, unspecified (principal)

== ENCOUNTER → 2016-12-20 | Outpatient (REF) | payer MEDICARE, MEDICAID ==
[2016-12-20 18:44] LABS: FREE T4 1.12 NG/DL (0.76-1.46)
== END ==
LOC: M LAB REF 16:43
PROVIDERS: ATTEND Internal Medicine Medical Oncology
DX: C34.90 Malignant neoplasm of unspecified part of unspecified bronchus or lung (principal); E04.9 Nontoxic goiter, unspecified

== ENCOUNTER → 2017-01-17 | Outpatient (REF) | payer MEDICARE, MEDICAID ==
[2017-01-17 17:31] LABS: FREE T4 1.11 NG/DL (0.76-1.46)
== END ==
LOC: M SFHCPLAZ 12:38
PROVIDERS: ATTEND Nurse Practitioner Family
DX: E78.5 Hyperlipidemia, unspecified (principal); E03.9 Hypothyroidism, unspecified

== ENCOUNTER → 2017-01-31 | Outpatient (REF) | payer MEDICARE ==
[2017-01-31 18:21] LABS: FREE T4 1.21 NG/DL (0.76-1.46)
== END ==
LOC: M LAB REF 16:02
PROVIDERS: ATTEND Internal Medicine Medical Oncology
DX: C34.90 Malignant neoplasm of unspecified part of unspecified bronchus or lung (principal); E04.9 Nontoxic goiter, unspecified

== ENCOUNTER → 2017-02-04 | Outpatient (CLI) | payer MEDICARE, MEDICAID ==
[~2017-02-04] MED LIST changes: +ISOVUE-370 76% 100ML VIAL (Q9967) As Ordered ONE
--- NOTE | 2017-02-04 11:04 | REP ---
CT of the chest with IV contrast for follow up of lung nodules: The patient has the following lung nodules: Image 17, left upper lobe, 6 mm, unchanged. Image 18, right upper lobe, 8 mm, unchanged. Image 22, right upper lobe, 13 mm, unchanged. Image 22, right upper lobe, 21 mm, previously 9 mm. Image 26, left upper lobe, 11 mm, previously 5 mm. Image 28, left upper lobe, 7 mm, previously 7 mm. Page 32, left upper lobe, 5 mm, previously 6 mm. Image 33, right upper lobe, 4 mm, previously 4 mm. Image 37, left upper lobe, 12 mm, previously 7 mm. Image 38, right upper lobe, 6 mm, previously 6 mm. Image 38, left upper lobe, 4 mm, previously 4 mm. Image 38, superior segment right lower lobe, 6 mm, previously 6 mm. Image 37, right upper lobe, 10 mm, 4 mm previously. Image 37, left upper lobe, 12 mm, 7 mm previously. Image 42, superior segment right lower lobe, 25 mm, previously 14 mm. Image 44, superior segment left lower lobe, 4 mm, 4 mm previously. Image 59, left lower lobe, 9 mm, There is no mediastinal or hilar adenopathy. There is no axillary adenopathy. The thoracic aorta is unremarkable. Cardiac size is normal. There is calcified vascular atheroma in the coronary arteries. There is a 15 mm nodule in the right adrenal and 80 ml nodule in the left adrenal. These are unchanged. 9 mm previously. The previous lung nodules have been re measured so that the same diameters are matched on the study. There is a 15 mm nodule right adrenal and and 18 mm nodule in the left adrenal. These are unchanged. Signed by Chano Valencia MD 02/04/2017 10:56 A
== END ==
LOC: M RAD 08:19
PROVIDERS: ATTEND Internal Medicine Medical Oncology
DX: C34.00 Malignant neoplasm of unspecified main bronchus (principal)
CPT/HCPCS: 71260; Q9967

== ENCOUNTER → 2017-03-28 | Outpatient (REF) | payer MEDICARE, MEDICAID ==
[~2017-03-28] MED LIST changes: -ISOVUE-370 76% 100ML VIAL (Q9967) As Ordered ONE
[2017-03-28 19:44] LABS: FREE T4 1.2 NG/DL (0.76-1.46)
== END ==
LOC: M LAB REF 18:17
PROVIDERS: ATTEND Internal Medicine Medical Oncology
DX: C34.90 Malignant neoplasm of unspecified part of unspecified bronchus or lung (principal); Z79.899 Other long term (current) drug therapy

== ENCOUNTER → 2017-03-28 | Outpatient (REF) | payer MEDICAID ==
[2017-03-28 14:55] LABS: ALBUMIN 3.8 GM/DL (3.2-5.2); ALBUMIN/GLOBULIN RATIO 1.19 (1.00-1.93); ALKALINE PHOSPHATASE 80 U/L (45-117); ALT/SGPT 24 U/L (12-78); ANION GAP 6 MEQ/L (8-16); AST/SGOT 18 U/L (7-37); BILIRUBIN,TOTAL 0.5 MG/DL (0.2-1.0); BLOOD UREA NITROGEN 14 MG/DL (7-18); CALCIUM LEVEL 8.9 MG/DL (8.5-10.1); CARBON DIOXIDE LEVEL 27 MEQ/L (21-32); CHLORIDE LEVEL 109 MEQ/L (98-107); CHOLESTEROL LEVEL 162 MG/DL (<200); CREATININE FOR GFR 0.73 MG/DL (0.70-1.30); FREE T4 1.12 NG/DL (0.76-1.46); GLOMERULAR FILTRATION RATE > 60.0 (>56); GLUCOSE, FASTING 78 MG/DL (70-105); POTASSIUM SERUM 4.5 MEQ/L (3.5-5.1); SODIUM LEVEL 142 MEQ/L (136-145); TRIGLYCERIDES LEVEL 85 MG/DL (<150)
== END ==
LOC: M SFHCPLAZ 11:24
PROVIDERS: ATTEND Nurse Practitioner Family
DX: E78.5 Hyperlipidemia, unspecified (principal); E03.9 Hypothyroidism, unspecified; Z12.5 Encounter for screening for malignant neoplasm of prostate

== ENCOUNTER → 2017-05-23 | Outpatient (REF) | payer MEDICARE, MEDICAID ==
[2017-05-23 20:57] LABS: FREE T4 1.06 NG/DL (0.76-1.46)
== END ==
LOC: M LAB REF 19:02
DX: C34.90 Malignant neoplasm of unspecified part of unspecified bronchus or lung (principal); Z79.899 Other long term (current) drug therapy
CPT/HCPCS: 84443

== ENCOUNTER → 2017-06-27 | Outpatient (REF) | payer MEDICARE, MEDICAID ==
[2017-06-27 16:19] LABS: ALBUMIN 4.1 GM/DL (3.2-5.2); ALBUMIN/GLOBULIN RATIO 1.32 (1.00-1.93); ALKALINE PHOSPHATASE 79 U/L (45-117); ALT/SGPT 25 U/L (12-78); ANION GAP 8 MEQ/L (8-16); AST/SGOT 20 U/L (7-37); BILIRUBIN,TOTAL 0.5 MG/DL (0.2-1.0); BLOOD UREA NITROGEN 16 MG/DL (7-18); CALCIUM LEVEL 8.9 MG/DL (8.5-10.1); CARBON DIOXIDE LEVEL 26 MEQ/L (21-32); CHLORIDE LEVEL 109 MEQ/L (98-107); CREATININE FOR GFR 0.82 MG/DL (0.70-1.30); GLOMERULAR FILTRATION RATE > 60.0 (>56); GLUCOSE, FASTING 78 MG/DL (70-100); POTASSIUM SERUM 4.4 MEQ/L (3.5-5.1); SODIUM LEVEL 143 MEQ/L (136-145); TOTAL PROTEIN 7.2 GM/DL (6.4-8.2)
== END ==
LOC: M SFHCPLAZ 14:14
DX: E03.9 Hypothyroidism, unspecified (principal); I10 Essential (primary) hypertension; E78.5 Hyperlipidemia, unspecified
CPT/HCPCS: 84443

== ENCOUNTER → 2017-08-23 | Outpatient (CLI) | payer MEDICARE, MEDICAID ==
[~2017-08-23] MED LIST changes: -AMLO5TAB2 PO; -ASPI325T PO; -ATOR1TAB21 PO; +GASTROGRAFIN SOLUTION 30ML (Q9963) As Ordered; -IBUP200C PO; +ISOVUE-370 76% 100ML VIAL (Q9967) As Ordered; -LEVO25TA5 PO; -LISI40TAB PO; -NICO14PA EXT; -NORCOTAB PO; -OXYC-517 PO
== END ==
LOC: M RAD 09:47
DX: C34.90 Malignant neoplasm of unspecified part of unspecified bronchus or lung (principal)
CPT/HCPCS: Q9963

== ENCOUNTER → 2017-10-11 | Outpatient (REF) | payer MEDICARE, MEDICAID ==
[2017-10-11 20:14] LABS: FREE T4 1.23 NG/DL (0.76-1.46)
== END ==
LOC: M LAB REF 17:24
DX: C34.11 Malignant neoplasm of upper lobe, right bronchus or lung (principal); C78.02 Secondary malignant neoplasm of left lung; C78.01 Secondary malignant neoplasm of right lung; Z51.81 Encounter for therapeutic drug level monitoring; Z79.899 Other long term (current) drug therapy
CPT/HCPCS: 84443

== ENCOUNTER → 2017-12-27 | Outpatient (REF) | payer MEDICAID, MEDICARE ==
[2017-12-27 17:45] LABS: ALBUMIN 3.6 GM/DL (3.2-5.2); ALBUMIN/GLOBULIN RATIO 1.06 (1.00-1.93); ALKALINE PHOSPHATASE 78 U/L (45-117); ALT/SGPT 21 U/L (12-78); ANION GAP 10 MEQ/L (8-16); AST/SGOT 14 U/L (7-37); BILIRUBIN,TOTAL 0.4 MG/DL (0.2-1.0); BLOOD UREA NITROGEN 15 MG/DL (7-18); CALCIUM LEVEL 8.6 MG/DL (8.5-10.1); CARBON DIOXIDE LEVEL 22 MEQ/L (21-32); CHLORIDE LEVEL 110 MEQ/L (98-107); CREATININE FOR GFR 0.78 MG/DL (0.70-1.30); FREE T4 1.05 NG/DL (0.76-1.46); GLOMERULAR FILTRATION RATE > 60.0 (>56); GLUCOSE, FASTING 70 MG/DL (70-100); POTASSIUM SERUM 4.6 MEQ/L (3.5-5.1); SODIUM LEVEL 142 MEQ/L (136-145)
== END ==
LOC: M SFHCPLAZ 14:45
DX: I10 Essential (primary) hypertension (principal); E03.9 Hypothyroidism, unspecified
CPT/HCPCS: 84443

== ENCOUNTER → 2018-01-03 | Outpatient (REF) | payer MEDICAID, MEDICARE | LOC: M LAB REF 17:38 | DX: Z51.81 Encounter for therapeutic drug level monitoring (principal); Z79.899 Other long term (current) drug therapy; C78.02 Secondary malignant neoplasm of left lung; C78.01 Secondary malignant neoplasm of right lung; C34.11 Malignant neoplasm of upper lobe, right bronchus or lung | CPT/HCPCS: 84443 ==

== ENCOUNTER → 2018-03-21 | Outpatient (CLI) | payer MEDICARE, MEDICAID | LOC: M RAD 11:15 | DX: C34.11 Malignant neoplasm of upper lobe, right bronchus or lung (principal); C78.01 Secondary malignant neoplasm of right lung | CPT/HCPCS: 71250 ==

== ENCOUNTER → 2018-04-14 | Outpatient (REF) | payer MEDICARE, MEDICAID ==
[~2018-04-14] MED LIST changes: +AMLO5TAB6 PO; +ASPI325T PO; +ATOR1TAB21 PO; -GASTROGRAFIN SOLUTION 30ML (Q9963) As Ordered; +IBUP200C PO; -ISOVUE-370 76% 100ML VIAL (Q9967) As Ordered; +LEVO25TA5 PO; +LEVO50TA5 PO; +LISI40TA PO; +NICO14PA EXT; +NORCOTAB PO; +OXYC-517 PO
[2018-04-14 13:10] LABS: ALBUMIN 3.5 GM/DL (3.2-5.2); ALT/SGPT 21 U/L (12-78); BILIRUBIN,TOTAL 0.3 MG/DL (0.2-1.0); BLOOD UREA NITROGEN 17 MG/DL (7-18); CALCIUM LEVEL 8.6 MG/DL (8.5-10.1); CARBON DIOXIDE LEVEL 25 MEQ/L (21-32); CHLORIDE LEVEL 109 MEQ/L (98-107); CHOLESTEROL LEVEL 132 MG/DL (<200); CHOLESTEROL RISK RATIO 3.567 (<5); CREATININE FOR GFR 0.73 MG/DL (0.70-1.30); FREE T4 1.08 NG/DL (0.76-1.46); GLOMERULAR FILTRATION RATE > 60.0 (>56); GLUCOSE, FASTING 87 MG/DL (70-100); HDL CHOLESTEROL 37 MG/DL (>40); LDL CHOLESTEROL 77 MG/DL (<100); NON-HDL-C 95 MG/DL; POTASSIUM SERUM 4.5 MEQ/L (3.5-5.1); SODIUM LEVEL 144 MEQ/L (136-145); TOTAL PROTEIN 6.8 GM/DL (6.4-8.2); TRIGLYCERIDES LEVEL 91 MG/DL (<150)
== END ==
LOC: M SFHCPLAZ 10:41
PROVIDERS: ATTEND Nurse Practitioner Family
DX: I10 Essential (primary) hypertension (principal); E03.9 Hypothyroidism, unspecified; E78.5 Hyperlipidemia, unspecified; Z12.5 Encounter for screening for malignant neoplasm of prostate
CPT/HCPCS: 36415; 80053; 80061; 84439; 84443; G0103

== ENCOUNTER → 2018-06-20 | Outpatient (CLI) | payer MEDICARE, MEDICAID ==
--- NOTE | 2018-06-20 20:39 | REP ---
Whole body PET CT scan for restaging of lung carcinoma: Comparison is the PET CT scan dated 05/24/[address] of the chest dated 03/21/2018. On the 03/21/[address] there were multiple lung nodules. There were progressive compared to November 23, 2017, increased in size and number. Whole body PET CT scan is performed from skull base to the upper thighs. Neck and supraclavicular areas: There is a new tiny focus slightly less than a centimeter in diameter posterior to the vocal cords with a maximal standard uptake value of 14.25, not present previously, possibly uptake in a lymph node. There are no other foci in the neck or supraclavicular areas. Chest: There is hypermetabolic uptake in all of the patient's known lung nodules with the exception of the spiculated nodule in the extreme apex of the right lung, and the too small nodules adjacent to one of the peripherally in the left upper lobe. All of the other lung nodules are hypermetabolic. There are no foci in the mediastinum or in the right or left alba or right or left axilla. There are no other foci in the chest. Abdomen, pelvis and upper thighs: There are no adrenal foci. There are no hepatic foci. The spleen is surgically absent. There are no hypermetabolic foci otherwise. Impression: There is a new tiny hypermetabolic focus in the neck posterior the vocal cords, possibly in a lymph node. There is hypermetabolic uptake in all of the patient's known lung nodules with the exception of a spiculated nodule in the right apex and too small nodules peripherally in the left upper lobe. There is no mediastinal or hilar uptake. No other uptake in the chest. There are no hypermetabolic foci in the abdomen, pelvis or upper thighs. The study is performed with 9.0 mCi of F 18 FDG. Electronically Signed by Chano Valencia MD 06/20/2018 08:30 P
== END ==
LOC: M PLARAD 11:15
PROVIDERS: ATTEND Internal Medicine Hematology & Oncology
DX: C34.11 Malignant neoplasm of upper lobe, right bronchus or lung (principal)
CPT/HCPCS: 78815; A9552

== ENCOUNTER → 2018-10-23 | Outpatient (CLI) | payer MEDICARE, MEDICAID ==
[~2018-10-23] MED LIST changes: +ASPI-1 PO; -ASPI325T PO; +BENA25CA4 PO; +ISOVUE-370 76% 100ML VIAL (Q9967) As Ordered ONE; +NICO14DI20 EXT; -NICO14PA EXT; +ONDA8TAB10 PO; +PRED10TA2 PO; +PRED50TA PO
--- NOTE | 2018-10-23 18:45 | REP ---
CT of the chest with IV contrast for restaging of lung and metastatic disease: Comparison is 03/21/2018. There are multiple lung nodules as previously. No new lung nodules are identified. The nodule in the right upper that previously measured 2.8 x 2.2 cm, today measures 3.4 x 8 2.7 cm and has increased in size. The large right lower lobe lung nodule previously measured 4.1 x 3.2 cm, and today measures 3.6 x 2.9 cm and has decreased in size. All of the other lung nodules are essentially unchanged in size. No new lung nodules are identified. No mediastinal or hilar lymph node enlargement is identified. No axillary lymph node enlargement is identified. Upper abdomen: There is a hypodense right adrenal nodule measuring 1.5 cm., unchanged. There are no hepatic lesions. 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 There are no lytic, blastic or destructive skeletal changes, as previously. Impression: Multiple lung nodules are again identified, unchanged in number. The largest nodule in the right lower lobe has decreased in size. The next largest nodule in the right upper lobe has increased in size. There are no other interval changes. Electronically Signed by Chano Valencia MD 10/23/2018 06:36 P
== END ==
LOC: M RAD 17:11
PROVIDERS: ATTEND Internal Medicine Hematology & Oncology
DX: C34.11 Malignant neoplasm of upper lobe, right bronchus or lung (principal)
CPT/HCPCS: 71260; Q9967

== ENCOUNTER → 2018-12-28 | Outpatient (REF) | payer MEDICARE, MEDICAID ==
[~2018-12-28] MED LIST changes: -ISOVUE-370 76% 100ML VIAL (Q9967) As Ordered ONE; -ONDA8TAB10 PO
[2018-12-28 19:57] LABS: FREE T4 1.2 NG/DL (0.76-1.46); THYROID STIMULATING HORMONE 4.72 uIU/ML (0.358-3.740)
== END ==
LOC: M SFHCPLAZ 15:09
PROVIDERS: ATTEND Nurse Practitioner Family
DX: E03.9 Hypothyroidism, unspecified (principal)
CPT/HCPCS: 36415; 84439; 84443; G0463

== ENCOUNTER 2019-01-23 12:06 | Emergency (ER) | payer MEDICARE, MEDICAID ==
[~2019-01-23] VITALS: Ht 162.6 cm; Wt 67.3 kg
[~2019-01-23 12:06] MED LIST changes: -BENA25CA4 PO; -ISOVUE-370 76% 100ML VIAL (Q9967) As Ordered ONE; -PRED10TA2 PO; -diphenhydrAMINE INJ 50MG/ML VIAL (J1200) As Ordered ONE
[2019-01-23] MEDS ORDERED: NS 1,000 ML IV ONE (12:30)
[2019-01-23] MEDS ORDERED: methylPREDNISolone INJ 125 MG/2 ML VIAL (J2930) IV ONE (12:30)
[2019-01-23] MEDS ORDERED: FAMOTIDINE INJ 20MG/2ML VIAL (S0028) IVP ONE (12:30)
[2019-01-23 13:02] LABS: BASO % 0.2 % (0.0-1.0); HEMATOCRIT 48.7 % (42.0-52.0); HEMOGLOBIN 16.5 g/dl (13.5-17.5); LYMPH # 0.7 10^3/uL (1.5-5.0); LYMPH % 4.5 % (24.0-44.0); MEAN CORPUSCULAR HEMOGLOBIN 32.4 pg (27.0-33.0); MEAN CORPUSCULAR HGB CONC 33.9 g/dl (32.0-36.5); MEAN CORPUSCULAR VOLUME 95.5 fl (80.0-96.0); MONO # 0.2 10^3/uL (0.0-0.8); MONO % 1.1 % (0.0-5.0); NEUTROPHILS # 13.4 10^3/uL (1.5-8.5); NEUTROPHILS % 92.6 % (36.0-66.0); PLATELET COUNT, AUTOMATED 266 10^3/uL (150-450); WHITE BLOOD COUNT 14.5 10^3/uL (4.0-10.0)
[2019-01-23 13:34] LABS: BLOOD UREA NITROGEN 14 MG/DL (7-18); CALCIUM LEVEL 8.7 MG/DL (8.5-10.1); CARBON DIOXIDE LEVEL 25 MEQ/L (21-32); CHLORIDE LEVEL 108 MEQ/L (98-107); CK-MB VALUE MASS 1.2 NG/ML (<3.6); CPK CREATINE PHOSPHOKINASE 85 U/L (39-308); CREATININE FOR GFR 0.89 MG/DL (0.70-1.30); GLOMERULAR FILTRATION RATE > 60.0 (>56); GLUCOSE, FASTING 120 MG/DL (70-100); MB/CK RELATIVE INDEX 1.41 (< OR =4); POTASSIUM SERUM 4.5 MEQ/L (3.5-5.1); SODIUM LEVEL 138 MEQ/L (136-145); TROPONIN I < 0.02 NG/ML (< 0.10)
[2019-01-23 14:41] VITALS: BP 153/101
[2019-01-23] MEDS ORDERED: PRED10TA2 PO (14:53)
[2019-01-23] MEDS ORDERED: BENA25CA4 PO (14:53)
--- NOTE | 2019-01-24 12:01 | ECGEPIP ---
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
== END 2019-01-23 15:03 | disposition home or self-care (01) ==
LOC: M ED 12:06
DX: T50.8X5A Adverse effect of diagnostic agents, initial encounter (principal); Y92.239 Unspecified place in hospital as the place of occurrence of the external cause; Y93.9 Activity, unspecified; C34.90 Malignant neoplasm of unspecified part of unspecified bronchus or lung; R51 Headache; I10 Essential (primary) hypertension; F17.200 Nicotine dependence, unspecified, uncomplicated; Z79.82 Long term (current) use of aspirin; Z79.899 Other long term (current) drug therapy; Z91.041 Radiographic dye allergy status
CPT/HCPCS: 36415; 71260; 80048; 82550; 82553; 84484; 85025; 93005; 93041; 94760; 96361; 96374; 96375; 99285; J1200; J2930; Q9967

== ENCOUNTER → 2019-01-23 | Outpatient (CLI) | payer MEDICARE, MEDICAID ==
[~2019-01-23] MED LIST changes: +ISOVUE-370 76% 100ML VIAL (Q9967) As Ordered ONE; +diphenhydrAMINE INJ 50MG/ML VIAL (J1200) As Ordered ONE
--- NOTE | 2019-01-23 13:48 | REP ---
REASON: History of lung cancer. Multiple priors were reviewed, the latest of which dated 10/23/2018. CONTRAST: 100 mL Isovue 370. There is no mediastinal or hilar adenopathy. The tip of the Mediport device is in the superior vena cava. There are no pleural or pericardial effusions. The imaged upper abdomen shows a 2 cm sized right adrenal gland nodule unchanged from not only the latest prior of 10/23/2018, but also unchanged from 03/21/2018. The imaged osseous structures show no evidence of significant change from the latest prior. Evaluation of the lung mendoza show multiple bilateral spiculated masses, the largest in the right upper lobe measures 3.8 cm and the largest in the right lower lobe measures 3.3 cm. Previously the right upper lobe mass measured 3.1 cm and the right lower lobe mass measured 3 cm. The largest left upper lobe nodule which is spiculated is unchanged from the latest prior. There is a lingular nodule which measures 1.2 cm previously this nodule measured 9 mm. IMPRESSION: Increasing size of lung nodules and masses to mention a few as described above. Other findings as described above. Electronically Signed by Otis Gonzalez DO 01/23/2019 02:16 P
== END ==
LOC: M RAD 11:11
PROVIDERS: ATTEND Internal Medicine Hematology & Oncology
DX: C34.90 Malignant neoplasm of unspecified part of unspecified bronchus or lung (principal)

== ENCOUNTER → 2019-04-19 | Outpatient (REF) | payer MEDICARE, MEDICAID ==
[~2019-04-19] MED LIST changes: +BENA25CA4 PO; +ONDA8TAB7 PO; +PRED10TA2 PO
[2019-04-19 14:25] LABS: FREE T4 1.09 NG/DL (0.76-1.46); THYROID STIMULATING HORMONE 4.53 uIU/ML (0.358-3.740)
== END ==
LOC: M SFHCPLAZ 13:32
PROVIDERS: ATTEND Nurse Practitioner Family
DX: Z12.5 Encounter for screening for malignant neoplasm of prostate (principal); I10 Essential (primary) hypertension; E03.9 Hypothyroidism, unspecified; E78.5 Hyperlipidemia, unspecified

== ENCOUNTER → 2019-04-26 | Outpatient (CLI) | payer MEDICARE, MEDICAID ==
[~2019-04-26] MED LIST changes: +ONDA8TAB10 PO; -ONDA8TAB7 PO
--- NOTE | 2019-04-26 16:16 | REP ---
CT chest without contrast: History: Restaging lung carcinoma. Comparison is made with prior CT studies the most recent which is from January 23, 2019 and October 23, 2018. CT findings: There has been significant improvement in the size of the multiple pulmonary metastatic nodules in the interval since the most recent prior study of January 24, 1928 19. One of the largest lesions which is seen in the superior segment of the right lower lobe has decreased in size from 3.5 x 3.3 cm on axial images 2.2 x 1.7 cm. The previously noted large lesion in the right apex has decreased in size from 3.8 x 2.7 cm in January 23, 2019 scan to 2.7 x 2.3 cm today. Similar decrease in the size is seen in most of the other nodules. There are several nodules which are quite small and appear morphologically unchanged. No new or larger nodule is appreciated. No hilar or mediastinal mass or adenopathy is observed. No new adrenal lesion. There is heavy vascular calcification. No bony destructive lesion. Impression: Improvement noted in multiple lung nodules. No evidence of progression. Electronically Signed by Ifeanyi aDy MD 04/26/2019 05:03 P
== END ==
LOC: M RAD 13:43
PROVIDERS: ATTEND Internal Medicine Hematology
DX: C34.11 Malignant neoplasm of upper lobe, right bronchus or lung (principal)

== ENCOUNTER → 2019-10-02 | Outpatient (CLI) | payer MEDICARE, MEDICAID ==
[~2019-10-02] MED LIST changes: +AMLO1TAB24 PO; -AMLO5TAB6 PO; +SYNT75TA PO
--- NOTE | 2019-10-02 16:55 | REP ---
REASON: History of lung carcinoma. All priors reviewed the latest 04/26/2019. The lack of intravenous contrast decreases the sensitivity of the exam. The mediastinum and pulmonary alba are unchanged. There are no pleural or pericardial effusions. There is no significant change in the appearance of the imaged upper abdomen or imaged osseous structures. Evaluation of the lung mendoza again shows numerable spiculated nodules of various sizes all of which have gotten somewhat smaller compared to the latest prior exam. No existing nodule has increased in size and there does not appear to have been interval development of a new abnormal nodule, mass, or opacity. IMPRESSION: There is evidence of continued improvement as described above. Electronically Signed by Otis Gonzalez DO 10/02/2019 05:29 P
== END ==
LOC: M RAD 14:21
PROVIDERS: ATTEND Specialist
DX: C34.90 Malignant neoplasm of unspecified part of unspecified bronchus or lung (principal)

== ENCOUNTER → 2019-12-27 | Outpatient (CLI) | payer MEDICARE, MEDICAID ==
--- NOTE | 2020-01-11 09:47 | REP ---
CT STUDY OF THE CHEST WITHOUT CONTRAST HISTORY: Lung carcinoma. COMPARISON: Chest CT is reviewed. The most recent of these is from 10/02/2019. PET CT 06/20/2018. CT FINDINGS: Lung parenchymal windows again demonstrate a metastatic pattern in multiple irregular pulmonary nodules. These are virtually all unchanged from the most recent prior study of 10/02/2019. There is a nodule in the lingular segment of the left upper lobe displayed on Page 63 of 109 in Series 201 of todays study, which measures 10 mm today, this measured 8 mm previously. This may have grown slightly. No new nodule is appreciated. The other nodules are unchanged. No hilar or mediastinal mass or adenopathy is seen. No pleural effusion is noted. The adrenals are somewhat thickened bilaterally consistent with adrenal hyperplasia. There is intrarenal nephrolithiasis in the upper pole of the left kidney. There are surgical clips in the left upper quadrant. Vascular calcification is noted along the left coronary artery distribution. 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 IMPRESSION: Metastatic pulmonary parenchymal nodules. No new nodule is seen. One nodule is slightly larger. The others are all stable. MTDD
== END ==
LOC: M RAD 13:08
PROVIDERS: ATTEND Specialist
DX: C34.91 Malignant neoplasm of unspecified part of right bronchus or lung (principal); C78.02 Secondary malignant neoplasm of left lung

== ENCOUNTER → 2020-04-08 | Outpatient (CLI) | payer MEDICARE, MEDICAID ==
--- NOTE | 2020-04-08 14:28 | RADONC.CN ---
Radiation Oncology Hx/Consult Radiation Oncology Consult Date of Service: Apr 08, 2020 Pt Identifier Chano Franklin is a 59 year old male current smoker with a long history of NSCLC dating back to 2013 when he presented with a miliary pattern of metastatic BL nodules in the absence of extrathoracic disease. The largest of which was in the RUL and was biopsied on 06/13/13 and returned adenocarcinoma ALK and EGFR negative. He has been on no less than 7 lines of systemic therapy since then, all without evidence of progression outside of the chest (each however, did not ultimately control the lung nodules). He is currently on 7th line abraxane as a single agent from 01/23/[address] chest from 01/29/20 showing stable disease with the exception of a small growing MARILOU lingular nodule measuring 1.2 cm. He is seen today for consideration of SBRT to address this nodule in this exceptional case of NSCLC. Diagnosis/Treatment History Oncologic History As above PFTs none recent, have been ordered 04/08/20 Recent imaging 03/20/20 CT chest: IMPRESSION: There are numerous metastatic pulmonary nodules bilaterally which are stable. There is 1 noncalcified pulmonary nodule in the lingular segment of the left upper lobe which is growing, now 12.5 mm in greatest diameter. This measured 8 mm on 02 October 2019. No new pulmonary nodule is seen. Pathology 06/12/13: Negative for ALK and EGFR. See complete reports from [facility]. 06/22/13711 Amendment: Electronically Signed by: Carmela Arteaga M.D. 06/22/13711 The slides were reviewed at [facility] and they agree with original diagnosis of moderately differentiated adenocarcinoma of lung. See complete consultation report. ALK and EGFR are pending, an addendum will follow. 06/14/13 786 Amendment: Electronically Signed by: Carmela Arteaga M.D. 06/14/13 [id number] FINAL DIAGNOSIS Right lung, CT guided biopsy: Positive for malignancy, consistent with moderately differentiated adenocarcinoma of lung. ALK and EGFR testing was submitted to [facility], an addendum with result will follow. See comment. COMMENT: Limited immunostains were performed to conserve tissue for ALK and E GFR testing. The tumor cells are positive for TTF-1 but not Napsin-A(only rare cells show weak staining). The positive TTF-1, in conjunction with presence of a spiculated lung mass is consistent with adenocarcinoma of lung primary. 4/TR 06/12/13 - 1327 Interval History Chano feels well overall. Has chronic left leg and back pain from an old injury which is stable. 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 He has a stable weight and appetite. Still smoking 5-10 cigarettes per day. Has quit before longest 6 months, doesn't want to make an attempt now. He has BECKFORD with heavy activities but is able to walk indefinite distance without significant SOB. Past Medical History: HPL HTN Past Surgical History: Left hip surgery 1990 Splenectomy 1990 Family History: Mother NHL Social History: 30 pack year current smoker Drinks 2 standard drinks daily Allergies / Meds Allergies: Coded Allergies: Contrast Media (Verified Allergy, Unknown, 01/30/19) Home Meds Active Scripts Oxycodone HCl (Oxycodone HCl) 5 Mg Tab, 5 MG PO Q4H PRN for pain MDD 6 for 30 Days, #160 TAB TAKE ONE TABLET EVERY 4 HOURS NEEDED FOR PAIN. Prov:SHELBY ESCOBAR MD 10/17/19 Ondansetron HCl (Ondansetron HCl) 8 Mg Tablet, 8 MG PO Q8H PRN for NAUSEA for 10 Days, #30 TAB 3 Refills TAKE ONE TABLET EVERY 8 HOURS NEEDED FOR NAUSEA. Prov:Ailin Bhatt MD 02/21/19 Atorvastatin Calcium (Atorvastatin Calcium) 20 Mg Tab, 80 MG PO DAILY, #30 TAB 1 Refill Prov:ALE MORALES PA-C 06/11/16 Aspirin (Aspirin) 325 Mg Tab, 325 MG PO DAILY, #30 TAB 0 Refills Prov:ALE MORALES PA-C 06/11/16 Amlodipine Besylate (Amlodipine Besylate) 5 Mg Tab, 5 MG PO DAILY, #30 TAB 1 Refill Prov:ALE MORALES PA-C 06/11/16 Reported Medications Levothyroxine Sodium (Synthroid) 75 Mcg Tablet, 1 TAB PO DAILY for 30 Days, #30 TAB 01/31/20 Lisinopril (Lisinopril) 40 Mg Tab, 40 MG PO DAILY, TAB 06/08/16 Review of Systems Constitutional: Denies: Chills, Fever, Night Sweats Eyes: Denies: Pain, Vision change HEENT: Denies: Head Aches, Dysphagia, Sore Throat Skin: Denies: Rash, Lesions, Bruising Pulmonary: Reports: Dyspnea; Denies: Cough Cardiovascular: Denies: Chest Pain, Palpitations, Edema Gastrointestinal: Denies: Nausea, Vomiting, Abdominal Pain, Diarrhea Genitourinary: Denies: Dysuria, Frequency, Incontinence Hematologic: Denies: Bruising, Petecchia, Enlarged Lymph Nodes Musculoskeletal: Reports: Back pain, Leg pain; Denies: Neck pain Neurological: Denies: Weakness, Numbness Psych: Reports: Mood Normal Vital Signs Ht 64" Wt 144 lb BMI 24.7 T 98.2 P 79 RR 16 BP 152/90 O2 97% Pain 3 left hip Fatigue 0 General Exam: Positive: Alert, Cooperative, No Acute Distress Eye Exam: Positive: PERRLA, EOMI ENT EXAM: Positive: Mucous membr. moist/pink, Pharynx Normal Neck Exam: Negative: Thyromegaly, Lymphadenopathy Chest Exam: Positive: Normal air movement; Negative: Rales, Rhonchi, Wheezing Heart Exam: Positive: Rate Normal, Regular Rhythm Abdomen Exam: Positive: Soft; Negative: Tenderness, Mass Extremity Exam: Negative: Clubbing, Cyanosis, Edema, Normal pulses, Tenderness, Swelling, Other Skin Exam: Positive: Nl turgor and temperature; Negative: Rash Neuro Exam: Positive: Normal Gait, Normal Speech, Cranial Nerves 3-12 NL Psych Exam: Positive: Mental status NL, Mood NL, Memory Intact Diagnostic and Laboratory Diagnostic Review Radiologic images, relevant labs and pathology reports were personally reviewed and discussed with Mr. Franklin. Assessment and Plan Impression Mr. Franklin is a 59 year old male with a long history of NSCLC dating back to 2013 when he presented with a miliary pattern of metastatic BL nodules in the absence of extrathoracic disease. The largest of which was in the RUL and was biopsied on 06/13/13 and returned adenocarcinoma ALK and EGFR negative. He has been on no less than 7 lines of systemic therapy since then, all without evidence of progression outside of the chest (each however, did not ultimately control the lung nodules). He is currently on 7th line abraxane as a single agent from 01/23/[address] chest from 01/29/20 showing stable disease with the exception of a small growing MARILOU lingular nodule measuring 1.2 cm. He is s een today for consideration of SBRT to address this nodule in this exceptional case of NSCLC. Stage NSCLC [id number] stage Kale adenocarcinoma presenting with BL lung nodules only Performance Status ECOG 0 Plan We had an extensive discussion with Mr. Franklin regarding the diagnosis at hand and available therapeutic options. He has an exceptional presentation with innumerable BL lung nodules at diagnosis in 2013 without extrathoracic metastases at any point since then. He has had prolonged survival on 7 lines of systemic therapy without any local therapy at anytime. His current disease burden consists of a few stable (some even calcified) bilateral lung nodules, with no evidence of mediastinal adenopathy. He has a single growing nodule 1.2 cm located in the lingula. I recommend that we treat this growing lesion with SBRT as the remainder of his other lesions have been under control for over 1 year now on abraxane, and as he has exhausted 6 previous lines of systemic therapy there are few viable options remaining to him. The indolent course of this disease is entirely amenable to the inclusion of local therapy at this juncture, and in the future at anytime there is progression in a single focus of thoracic disease. To this end I would give 60 Gy in 5 fractions with a 4D planning CT and DCA based amplitude gated treatment delivery. We discussed the logistics of receiving radiation therapy in detail including the need for a 1-time planning session. The side effect profile is modest for a peripheral lesion such as this, it includes mild fatigue and a 5-8% chance of symptomatic pneumonitis. He has not had PFTs so I will order them. After discussing the risks, benefits and alternatives to radiation therapy, Mr. Franklin was amenable to pursuing radiotherapy. All questions were answered to the patient's satisfaction. We instructed the patient that if there were any questions,concerns or changes in clinical status in the interim to contact us. Recommendations SBRT to the left lingular nodule 60 Gy 5 fractions with DCA Simulation with 4DCT next week MARIBETH GARCIA MD Apr 08, 2020 14:28
== END ==
LOC: M ONCR 12:41
PROVIDERS: ATTEND General Practice
DX: C34.12 Malignant neoplasm of upper lobe, left bronchus or lung (principal)

== ENCOUNTER 2020-05-02 14:07 | Outpatient (RCR) | payer MEDICARE, MEDICAID | END 2020-05-11 | LOC: M ONCR 14:07 | PROVIDERS: ATTEND General Practice | DX: C34.12 Malignant neoplasm of upper lobe, left bronchus or lung (principal) ==

== ENCOUNTER → 2020-05-20 | Outpatient (REF) | payer MEDICARE, MEDICAID ==
[~2020-05-20] MED LIST changes: -LISI40TA PO; +LISI40TA4 PO
[2020-05-20 18:49] LABS: BLOOD UREA NITROGEN 13 MG/DL (7-18); CALCIUM LEVEL 8.6 MG/DL (8.5-10.1); CARBON DIOXIDE LEVEL 23 MEQ/L (21-32); CHLORIDE LEVEL 107 MEQ/L (98-107); CREATININE FOR GFR 0.81 MG/DL (0.70-1.30); FREE T4 1.31 NG/DL (0.76-1.46); GLOMERULAR FILTRATION RATE > 60.0 (>56); GLUCOSE, FASTING 79 MG/DL (70-100); POTASSIUM SERUM 4.2 MEQ/L (3.5-5.1); SODIUM LEVEL 140 MEQ/L (136-145)
[2020-05-20 18:50] LABS: CREATININE, URINE 77.8 MG/DL; MALB URINE SIEMENS 15.5 MG/L; MAU/CREAT RATIO 19.9 MCG/MG (0.0-30.0)
== END ==
LOC: M SFHCPLAZ 15:11
PROVIDERS: ATTEND Nurse Practitioner Family
DX: E03.9 Hypothyroidism, unspecified (principal); I10 Essential (primary) hypertension; N40.0 Benign prostatic hyperplasia without lower urinary tract symptoms; Z23 Encounter for immunization
CPT/HCPCS: 36415; 80048; 82043; 84439; 84443; 90682; G0008; G0103; G0463

== ENCOUNTER → 2020-07-29 | Outpatient (CLI) | payer MEDICARE, MEDICAID ==
--- NOTE | 2020-07-29 15:04 | REP ---
INDICATION: LUNG CA RESPONSE ASSESSMENT COMPARISON: 03/20/2020 TECHNIQUE: Axial noncontrast images from the thoracic inlet to the upper abdomen with coronal and sagittal reformations. This CT examination was performed using the following dose reduction techniques: Automated exposure control, adjustment of mA and/or kv according to the patient's size, and use of iterative reconstruction technique. FINDINGS: Multiple bilateral metastatic pulmonary nodules appear relatively stable or slightly improved. However, a single multilobulated lesion in the anterior basilar right upper lobe segment has increased in size and now measures approximately 1.9 x 1.0 cm diameter (series 201; images 40-43). No effusion. No pneumothorax. Tracheobronchial tree is patent. No obvious adenopathy. Mediastinum demonstrates stable atherosclerotic changes to the thoracic aorta and coronary arteries without aortic aneurysm or cardiomegaly. No pericardial effusion. Surrounding musculoskeletal structures without obvious acute process. Left-sided [id number] with tip in the SVC. IMPRESSION: 1. The multiple scattered bilateral metastatic pulmonary nodules appear relatively stable. However there is a single multilobulated lesion in the anterior right upper lobe which is increased in size. 2. No consolidation, effusion, or pneumothorax. No obvious adenopathy. <Electronically signed by Bi Wood > 07/29/20 [id number]
== END ==
LOC: M RAD 12:32
PROVIDERS: ATTEND General Practice
DX: C34.12 Malignant neoplasm of upper lobe, left bronchus or lung (principal)

== ENCOUNTER → 2020-11-05 | Outpatient (CLI) | payer MEDICARE, MEDICAID ==
[~2020-11-05] MED LIST changes: +GILO1TAB2 PO
--- NOTE | 2020-11-05 12:42 | RADONC ---
Radiation Oncology Hx/FUP Radiation Oncology Hx/FUP Date of Service: Nov 05, 2020 Pt Identifier Chano Franklin is a 60 year old male current smoker with a long history of NSCLC dating back to 2013 when he presented with a miliary pattern of metastatic BL nodules in the absence of extrathoracic disease. The largest of which was in the RUL and was biopsied on 06/13/13 and returned adenocarcinoma ALK and EGFR negative. He has been on no less than 7 lines of systemic therapy since then, all without evidence of progression outside of the chest (each however, did not ultimately control the lung nodules). He is currently on 7th line abraxane as a single agent from 01/23/19. He had a CT chest from 01/29/20 showing stable disease with the exception of a small growing MARILOU lingular nodule measuring 1.2 cm, he received SBRT to this nodule 60 Gy in 5 fractions completed 05/02/20. On 07/29/20 CT the treated nodule was in response but there was progression of se veral of the other existing nodules. Because of this he discontinued abraxane and was started on afatinib. Diagnosis/Treatment History Oncologic History As above Interval History Chano remains on afatinib, tolerating this well. He had some acne like rash on his nose shortly after starting which has since resolved. He has stable BECKFORD, no increase in cough. No chest pain or SOB at rest. He does have some fatigue which is chronic. He is eating well and maintaining weight. Current Therapy Afatinib from 09/11/20 Stage NSCLC [id number] stage Kale adenocarcinoma presenting with BL lung nodules only Social History: 30 pack year current smoker Drinks 2 standard drinks daily Allergies / Meds Allergies: Coded Allergies: Contrast Media (Verified Allergy, Unknown, 01/30/19) Home Meds Active Scripts Afatinib Dimaleate (Gilotrif) 40 Mg Tablet, 40 MG PO DAILY for Non small hi lug cancer for 30 Days, #30 TAB 6 Refills 1 hr before or 2 hrs after meals Prov:SHELBY NOYOLA MD 09/19/20 Oxycodone HCl (Oxycodone HCl) 5 Mg Tab, 5 MG PO Q4H PRN for pain MDD 6 for 30 Days, #160 TAB TAKE ONE TABLET EVERY 4 HOURS NEEDED FOR PAIN. Prov:SHELBY NOYOLA MD 10/17/19 Ondansetron HCl (Ondansetron HCl) 8 Mg Tablet, 8 MG PO Q8H PRN for NAUSEA for 10 Days, #30 TAB 3 Refills TAKE ONE TABLET EVERY 8 HOURS NEEDED FOR NAUSEA. Prov:Ailin Bhatt MD 02/21/19 Aspirin (Aspirin) 325 Mg Tab, 325 MG PO DAILY, #30 TAB 0 Refills Prov:ALE MORALES PA-C 06/11/16 Amlodipine Besylate (Amlodipine Besylate) 5 Mg Tab, 5 MG PO DAILY, #30 TAB 1 Refill Prov:ALE MORALES PA-C 06/11/16 Reported Medications Levothyroxine Sodium (Synthroid) 75 Mcg Tablet, 1 TAB PO DAILY for 30 Days, #30 TAB 01/31/20 Lisinopril (Lisinopril) 40 Mg Tab, 40 MG PO DAILY, TAB 06/08/16 Review of Systems Review of Systems Constitutional: Reports: Fatigue; Denies: Weight Loss Eyes: Denies: Pain HEENT: Denies: Head Aches Skin: Denies: Rash Pulmonary: Reports: Dyspnea; Denies: Cough, Pleuritic Chest Pain Cardiovascular: Denies: Chest Pain, Palpitations Gastrointestinal: Denies: Abdominal Pain, Diarrhea Genitourinary: Denies: Dysuria Musculoskeletal: Denies: Neck pain, Back pain Neurological: Reports: Numbness (Fingers toes chronic); Denies: Weakness Psych: Reports: Mood Normal Physical Examination Vital Signs Wt 145 lbs T 97 P 78 RR 18 BP 125/75 O2 97% Pain 0 Fatigue 0 General Exam: Positive: Alert, Cooperative, No Acute Distress Eye Exam: Positive: PERRLA, EOMI ENT EXAM: Positive: Atraumatic Neck Exam: Negative: Lymphadenopathy Chest Exam: Positive: Clear to auscultation, Normal air movement Heart Exam: Positive: Rate Normal, Regular Rhythm Abdomen Exam: Positive: Soft; Negative: Tenderness Extremity Exam: Negative: Edema Skin Exam: Positive: Nl turgor and temperature Neuro Exam: Positive: Normal Gait, Normal Speech, Cranial Nerves 3-12 NL Psych Exam: Positive: Mental status NL Diagnostic and Laboratory Diagnostic Review Radiologic images, relevant labs and pathology reports were personally reviewed and discussed with Mr. Franklin. Assessment and Plan Impression Assessment Mr. Franklin is a 60 year old male current smoker with a long history of NSCLC dating back to 2013 when he presented with a miliary pattern of metastatic BL nodules in the absence of extrathoracic disease. The largest of which was in the RUL and was biopsied on 06/13/13 and returned adenocarcinoma ALK and EGFR negative. He has been on no less than 7 lines of systemic therapy since then, all without evidence of progression outside of the chest (each however, did not ultimately control the lung nodules). He is currently on 7th line abraxane as a single agent from 01/23/19. He had a CT chest from 01/29/20 showing stable disease with the exception of a small growing MARILOU lingular nodule measuring 1.2 cm, he received SBRT to this nodule 60 Gy in 5 fractions completed 05/02/20. On 07/29/20 CT the treated nodule was in response but there was progression of s everal of the other existing nodules. Because of this he discontinued abraxane and was started on afatinib. Doing well, no late sequelae of SBRT to the left lung. Discussed that Dr. Noyola will order scans in the coming months to assess response to afatinib. As he has progressed through so many lines of systemic therapy, we discussed that if he exhausted all of his systemic therapy options, or if there was oligoprogression again down the line while on afatinib, that we could consider SBRT again. There is growing data for this approach. I explained that multiple courses of RT to individual lesions, or even combined courses targeting multiple lesions can be safe and are feasible. For now I will see him again in 6 months, or sooner if needed. Performance Status ECOG 0 Plan Follow up in [address] Noyola Mr. Franklin was encouraged to call with questions or concerns in the interim period. Billing Statement Total time of [26] minutes was spent preparing for the visit [1], obtaining HPI [6], examining the patient [2], reviewing diagnostic tests [1], discussing management options [9], coordinating care [1], and writing this note [6]. MARIBETH GARCIA MD Nov 05, 2020 12:42
== END ==
LOC: M ONCR 10:59
PROVIDERS: ATTEND General Practice
DX: C34.12 Malignant neoplasm of upper lobe, left bronchus or lung (principal); F17.210 Nicotine dependence, cigarettes, uncomplicated; Z79.82 Long term (current) use of aspirin; Z91.041 Radiographic dye allergy status; Z92.3 Personal history of irradiation

== ENCOUNTER → 2020-11-18 | Outpatient (CLI) | payer MEDICARE, MEDICAID ==
[2020-11-18 17:56] LABS: ALBUMIN 3.5 GM/DL (3.2-5.2); ALT/SGPT 15 U/L (12-78); BILIRUBIN,TOTAL 0.4 MG/DL (0.2-1.0); BLOOD UREA NITROGEN 13 MG/DL (7-18); CALCIUM LEVEL 8.6 MG/DL (8.8-10.2); CARBON DIOXIDE LEVEL 24 MEQ/L (21-32); CHLORIDE LEVEL 110 MEQ/L (98-107); CHOLESTEROL LEVEL 214 MG/DL (<200); CHOLESTEROL RISK RATIO 5.783 (<5); CREATININE FOR GFR 0.69 MG/DL (0.70-1.30); FREE T4 1.26 NG/DL (0.76-1.46); GLOMERULAR FILTRATION RATE > 60.0 (>49); GLUCOSE, FASTING 69 MG/DL (70-100); HDL CHOLESTEROL 37 MG/DL (>40); LDL CHOLESTEROL 157 MG/DL (<100); NON-HDL-C 177 MG/DL; POTASSIUM SERUM 4.2 MEQ/L (3.5-5.1); SODIUM LEVEL 139 MEQ/L (136-145); TOTAL PROTEIN 6.5 GM/DL (6.4-8.2); TRIGLYCERIDES LEVEL 100 MG/DL (<150)
== END ==
LOC: M PLALAB 14:59
PROVIDERS: ATTEND Nurse Practitioner Family
DX: E78.5 Hyperlipidemia, unspecified (principal); I10 Essential (primary) hypertension; E03.9 Hypothyroidism, unspecified; F17.210 Nicotine dependence, cigarettes, uncomplicated
CPT/HCPCS: 36415; 80053; 80061; 84439; 84443; 99406; G0463

== ENCOUNTER → 2021-01-14 | Outpatient (CLI) | payer MEDICARE, MEDICAID ==
[~2021-01-14] MED LIST changes: +ATOR80TA59
--- NOTE | 2021-01-14 15:15 | REP ---
INDICATION: LUNG CA COMPARISON: Multiple the latest 07/29/2020 also without contrast TECHNIQUE: Standard helical technique without intravenous contrast. FINDINGS: There is no significant change in appearance of the mediastinum or pulmonary alba. There are no pleural or pericardial effusions. The tip of the MediPort catheter is again seen in the superior vena cava. There is no significant change in appearance of the imaged upper abdomen or imaged osseous structures. Evaluation of the lung mendoza shows multiple scattered spiculated and asymmetric pulmonary nodules which have not changed significantly. No definite new abnormal nodules have developed. IMPRESSION: There has been no significant change compared to the prior exam. <Electronically signed by Otis Gonzalez > 01/14/21 [id number]
== END ==
LOC: M RAD 14:36
PROVIDERS: ATTEND Specialist
DX: C34.90 Malignant neoplasm of unspecified part of unspecified bronchus or lung (principal)

== ENCOUNTER → 2021-02-13 | Outpatient (CLI) | payer MEDICARE, MEDICAID ==
[2021-02-13 15:18] LABS: BASO # 0.1 10^3/uL (0.0-0.2); EOS # 0.2 10^3/uL (0.0-0.5); EOS % 2.4 % (0.0-3.0); HEMATOCRIT 42.9 % (42.0-52.0); HEMOGLOBIN 14.2 g/dl (13.5-17.5); LYMPH # 2.7 10^3/uL (1.5-5.0); LYMPH % 26.5 % (24.0-44.0); MEAN CORPUSCULAR HEMOGLOBIN 31.7 pg (27.0-33.0); MEAN CORPUSCULAR HGB CONC 33.1 g/dl (32.0-36.5); MEAN CORPUSCULAR VOLUME 95.8 fl (80.0-96.0); MONO # 1.6 10^3/uL (0.0-0.8); MONO % 15.5 % (2.0-8.0); NEUTROPHILS # 5.5 10^3/uL (1.5-8.5); NEUTROPHILS % 54.2 % (36.0-66.0); PLATELET COUNT, AUTOMATED 231 10^3/uL (150-450); RED BLOOD COUNT 4.48 10^6/uL (4.30-6.10); WHITE BLOOD COUNT 10.2 10^3/uL (4.0-10.0)
[2021-02-13 15:49] LABS: ALBUMIN 3.6 GM/DL (3.2-5.2); ALT/SGPT 22 U/L (12-78); BILIRUBIN,TOTAL 0.4 MG/DL (0.2-1.0); BLOOD UREA NITROGEN 20 MG/DL (7-18); CARBON DIOXIDE LEVEL 25 MEQ/L (21-32); CHLORIDE LEVEL 111 MEQ/L (98-107); CREATININE FOR GFR 0.81 MG/DL (0.70-1.30); GLOMERULAR FILTRATION RATE > 60.0 (>49); GLUCOSE, FASTING 85 MG/DL (70-100); POTASSIUM SERUM 4.7 MEQ/L (3.5-5.1); SODIUM LEVEL 142 MEQ/L (136-145)
== END ==
LOC: M PLALAB 14:36
PROVIDERS: ATTEND Specialist
DX: C34.90 Malignant neoplasm of unspecified part of unspecified bronchus or lung (principal)

== ENCOUNTER → 2021-05-13 | Outpatient (CLI) | payer MEDICARE, MEDICAID ==
[~2021-05-13] MED LIST changes: +ONDA-84 PO; -ONDA8TAB10 PO
== END ==
LOC: M RAD 14:06
PROVIDERS: ATTEND Specialist
DX: C34.90 Malignant neoplasm of unspecified part of unspecified bronchus or lung (principal)

== ENCOUNTER → 2021-06-01 | Outpatient (CLI) | payer MEDICARE, MEDICAID ==
[2021-06-01 16:12] LABS: CHOLESTEROL RISK RATIO 3.23 (<5); FREE T4 1.35 NG/DL (0.76-1.46); THYROID STIMULATING HORMONE 3.21 uIU/ML (0.358-3.740)
== END ==
LOC: M PLALAB 13:50
PROVIDERS: ATTEND Nurse Practitioner Family
DX: E03.9 Hypothyroidism, unspecified (principal); E78.5 Hyperlipidemia, unspecified

== ENCOUNTER → 2021-06-04 | Outpatient (CLI) | payer MEDICARE, MEDICAID | LOC: M ONCR 12:50 | PROVIDERS: ATTEND General Practice | DX: C34.12 Malignant neoplasm of upper lobe, left bronchus or lung (principal); R91.8 Other nonspecific abnormal finding of lung field; Z79.82 Long term (current) use of aspirin; Z79.899 Other long term (current) drug therapy; Z91.041 Radiographic dye allergy status; Z92.3 Personal history of irradiation ==

== ENCOUNTER → 2021-08-24 | Outpatient (CLI) | payer MEDICARE, MEDICAID | LOC: M RAD 13:00 | PROVIDERS: ATTEND Specialist | DX: C34.11 Malignant neoplasm of upper lobe, right bronchus or lung (principal); N20.0 Calculus of kidney ==

== ENCOUNTER → 2021-10-05 | Outpatient (CLI) | payer MEDICARE, MEDICAID | LOC: M PLAIMG 13:03 | PROVIDERS: ATTEND Physician Assistant Medical | DX: M16.12 Unilateral primary osteoarthritis, left hip (principal) ==

== ENCOUNTER → 2021-12-09 | Outpatient (CLI) | payer MEDICARE, MEDICAID ==
[~2021-12-09] MED LIST changes: +CELE1CAP7; +TAMS1CAP17
== END ==
LOC: M ONCR 13:38
PROVIDERS: ATTEND General Practice
DX: C34.12 Malignant neoplasm of upper lobe, left bronchus or lung (principal); F17.210 Nicotine dependence, cigarettes, uncomplicated; Z79.82 Long term (current) use of aspirin; Z79.890 Hormone replacement therapy; Z79.891 Long term (current) use of opiate analgesic; Z79.899 Other long term (current) drug therapy; Z91.041 Radiographic dye allergy status; Z92.3 Personal history of irradiation

== ENCOUNTER → 2021-12-24 | Outpatient (CLI) | payer MEDICARE, MEDICAID | LOC: M PLAIMG 09:55 | PROVIDERS: ATTEND Specialist | DX: C34.90 Malignant neoplasm of unspecified part of unspecified bronchus or lung (principal) ==

== ENCOUNTER → 2022-04-07 | Outpatient (CLI) | payer MEDICARE, MEDICAID | LOC: M RAD 14:02 | PROVIDERS: ATTEND Specialist | DX: C34.90 Malignant neoplasm of unspecified part of unspecified bronchus or lung (principal) ==

== ENCOUNTER → 2022-06-15 | Outpatient (CLI) | payer MEDICARE, MEDICAID ==
[2022-06-15 13:35] LABS: BASO # 0.1 10^3/uL (0.0-0.2); BASO % 0.9 % (0.0-1.0); EOS # 0.2 10^3/uL (0.0-0.5); EOS % 1.7 % (0.0-3.0); HEMATOCRIT 46.3 % (42.0-52.0); HEMOGLOBIN 15.1 g/dl (13.5-17.5); LYMPH % 19.7 % (24.0-44.0); MEAN CORPUSCULAR HEMOGLOBIN 31.6 pg (27.0-33.0); MEAN CORPUSCULAR HGB CONC 32.6 g/dl (32.0-36.5); MEAN CORPUSCULAR VOLUME 96.9 fl (80.0-96.0); MONO # 1.1 10^3/uL (0.0-0.8); MONO % 10.2 % (2.0-8.0); NEUTROPHILS # 6.9 10^3/uL (1.5-8.5); NEUTROPHILS % 67.1 % (36.0-66.0); PLATELET COUNT, AUTOMATED 271 10^3/uL (150-450); RED BLOOD COUNT 4.78 10^6/uL (4.30-6.10); WHITE BLOOD COUNT 10.4 10^3/uL (4.0-10.0)
[2022-06-15 14:12] LABS: CPK CREATINE PHOSPHOKINASE 89 U/L (46-171)
[2022-06-15 14:15] LABS: ALBUMIN 3.5 G/DL (3.2-5.2); ALKALINE PHOSPHATASE 82 U/L (46-116); ALT/SGPT 19 U/L (7.0-40); AST/SGOT 15 U/L (<34); BILIRUBIN,TOTAL 0.5 MG/DL (0.3-1.2); BLOOD UREA NITROGEN 21 MG/DL (9-23); CALCIUM LEVEL 8.7 MG/DL (8.3-10.6); CARBON DIOXIDE LEVEL 24 MMOL/L (20-31); CHLORIDE LEVEL 111 MMOL/L (98-107); CHOLESTEROL LEVEL 154 MG/DL (<200); CHOLESTEROL RISK RATIO 3.48 (<5); CREATININE FOR GFR 0.77 MG/DL (0.70-1.30); FREE T4 1.18 NG/DL (0.89-1.76); GLOMERULAR FILTRATION RATE > 60.0 (>49); GLUCOSE, FASTING 68 MG/DL (74-106); HDL CHOLESTEROL 44.2 MG/DL (>40); LDL CHOLESTEROL 98.6 MG/DL (<100); NON-HDL-C 110 MG/DL; POTASSIUM SERUM 4.7 MMOL/L (3.5-5.1); SODIUM LEVEL 143 MMOL/L (136-145); THYROID STIMULATING HORMONE 4.824 uIU/ML (0.55-4.78); TOTAL PROTEIN 6.3 G/DL (5.7-8.2); TRIGLYCERIDES LEVEL 56 MG/DL (<150)
== END ==
LOC: M PLALAB 11:45
PROVIDERS: ATTEND Physician Assistant Medical
DX: N40.0 Benign prostatic hyperplasia without lower urinary tract symptoms (principal); E78.5 Hyperlipidemia, unspecified; E03.9 Hypothyroidism, unspecified; Z90.81 Acquired absence of spleen

== ENCOUNTER → 2022-06-28 | Outpatient (CLI) | payer MEDICARE, MEDICAID | LOC: M PLARAD 08:22 | PROVIDERS: ATTEND Internal Medicine | DX: C34.11 Malignant neoplasm of upper lobe, right bronchus or lung (principal) | CPT/HCPCS: 78815; A9552 ==

== ENCOUNTER → 2022-08-05 | Outpatient (CLI) | payer MEDICARE, MEDICAID ==
[~2022-08-05] MED LIST changes: +AMLO1TAB25 PO; +ASPI81TA26 PO; +CLOP75TA2; +LIDOCAINE 1% MDV 20ML VIAL As Ordered ONE; +MIDAZOLAM INJ 2MG/2ML VIAL As Ordered ONE; +NS 1,000 ML IV SCH; +ceFAZolin 2 GM/D5W 50 ML IV BAG As Ordered ONE; +ceFAZolin SOD 2 GM in IV 1 EA IV ONE; +diphenhydrAMINE 50MG/ML VIAL As Ordered ONE; +fentaNYL 100 MCG/2 ML INJECTION As Ordered ONE
[2022-08-05 16:50] VITALS: BP 118/63
== END ==
LOC: M IRPRO 12:39
PROVIDERS: ATTEND Specialist
DX: C34.90 Malignant neoplasm of unspecified part of unspecified bronchus or lung (principal)
CPT/HCPCS: 36561; 99152; 99153; C1769; C1788; C1894; J0690; J1200; J2250; J3010

== ENCOUNTER → 2022-08-31 | Outpatient (POV) | payer MEDICARE, MEDICAID ==
[~2022-08-31] MED LIST changes: -ATOR80TA59; +ATOR80TA59 PO; -CELE1CAP7; +CELE1CAP7 PO; -CLOP75TA2; +CLOP75TA2 PO; -LIDOCAINE 1% MDV 20ML VIAL As Ordered ONE; -MIDAZOLAM INJ 2MG/2ML VIAL As Ordered ONE; -NS 1,000 ML IV SCH; -TAMS1CAP17; +TAMS1CAP17 PO; -ceFAZolin 2 GM/D5W 50 ML IV BAG As Ordered ONE; -ceFAZolin SOD 2 GM in IV 1 EA IV ONE; -diphenhydrAMINE 50MG/ML VIAL As Ordered ONE; -fentaNYL 100 MCG/2 ML INJECTION As Ordered ONE
== END ==
LOC: M IRPOV 15:07
PROVIDERS: ATTEND Radiology Diagnostic Radiology
DX: Z53.9 Procedure and treatment not carried out, unspecified reason (principal)

== ENCOUNTER → 2022-12-06 | Outpatient (CLI) | payer MEDICARE, MEDICAID ==
[~2022-12-06] MED LIST changes: -CELE1CAP7 PO; +CELE1CAP8 PO
== END ==
LOC: M PLAIMG 11:39
PROVIDERS: ATTEND Specialist
DX: C34.90 Malignant neoplasm of unspecified part of unspecified bronchus or lung (principal)

== ENCOUNTER → 2023-06-20 | Outpatient (CLI) | payer MEDICARE, MEDICAID ==
[~2023-06-20] MED LIST changes: -CELE1CAP8 PO; +CELE1CAP99 PO
== END ==
LOC: M PLARAD 12:23
PROVIDERS: ATTEND Nurse Practitioner
DX: C34.11 Malignant neoplasm of upper lobe, right bronchus or lung (principal)
CPT/HCPCS: 78815; A9552

== ENCOUNTER → 2023-09-20 | Outpatient (CLI) | payer MEDICARE, MEDICAID | LOC: M PLARAD 10:27 | PROVIDERS: ATTEND Specialist | DX: C34.11 Malignant neoplasm of upper lobe, right bronchus or lung (principal) | CPT/HCPCS: 78815; A9552 ==

== ENCOUNTER → 2023-12-13 | Outpatient (CLI) | payer MEDICARE, MEDICAID | LOC: M PLARAD 12:14 | PROVIDERS: ATTEND Internal Medicine Medical Oncology | DX: C34.11 Malignant neoplasm of upper lobe, right bronchus or lung (principal) | CPT/HCPCS: 78815; A9552 ==

== ENCOUNTER → 2024-02-20 | Outpatient (CLI) | payer MEDICARE, MEDICAID | LOC: M ONCR 09:46 | PROVIDERS: ATTEND General Practice | DX: R91.8 Other nonspecific abnormal finding of lung field (principal); C34.12 Malignant neoplasm of upper lobe, left bronchus or lung; F17.218 Nicotine dependence, cigarettes, with other nicotine-induced disorders; Z92.21 Personal history of antineoplastic chemotherapy; Z92.3 Personal history of irradiation; Z90.81 Acquired absence of spleen; Z91.041 Radiographic dye allergy status; Z79.890 Hormone replacement therapy; Z79.02 Long term (current) use of antithrombotics/antiplatelets; Z79.899 Other long term (current) drug therapy; Z79.82 Long term (current) use of aspirin ==

== ENCOUNTER → 2024-04-02 | Outpatient (CLI) | payer MEDICARE, MEDICAID | LOC: M RAD 07:50 | PROVIDERS: ATTEND Specialist | DX: C34.90 Malignant neoplasm of unspecified part of unspecified bronchus or lung (principal) ==

== ENCOUNTER → 2024-04-10 | Outpatient (RCR) | payer MEDICARE, MEDICAID | LOC: M ONCR 03-19 11:01 | PROVIDERS: ATTEND General Practice | DX: Z51.0 Encounter for antineoplastic radiation therapy (principal); C34.12 Malignant neoplasm of upper lobe, left bronchus or lung ==

== ENCOUNTER 2024-04-12 10:14 | Outpatient (RCR) | payer MEDICARE, MEDICAID | END 2024-05-11 | LOC: M ONCR 10:14 | PROVIDERS: ATTEND General Practice | DX: Z51.0 Encounter for antineoplastic radiation therapy (principal); C34.12 Malignant neoplasm of upper lobe, left bronchus or lung ==

== ENCOUNTER → 2024-04-12 | Outpatient (CLI) | payer MEDICARE, MEDICAID ==
[2024-04-12 12:30] LABS: CHOLESTEROL RISK RATIO 4.2 (<5); FREE T4 1.35 NG/DL (0.89-1.76); HDL CHOLESTEROL 52.6 MG/DL (>40); LDL CHOLESTEROL 152.6 MG/DL (<100); NON-HDL-C 168.4 MG/DL; THYROID STIMULATING HORMONE 2.092 uIU/ML (0.55-4.78)
== END ==
LOC: M LAB 11:22
PROVIDERS: ATTEND Physician Assistant Medical
DX: E78.5 Hyperlipidemia, unspecified (principal); E03.9 Hypothyroidism, unspecified

== ENCOUNTER → 2024-05-02 | Outpatient (CLI) | payer MEDICARE, MEDICAID | LOC: M CARPUL 13:43 | PROVIDERS: ATTEND Physician Assistant Medical | DX: C34.90 Malignant neoplasm of unspecified part of unspecified bronchus or lung (principal) ==

== ENCOUNTER → 2024-05-11 | Outpatient (CLI) | payer MEDICARE, MEDICAID | LOC: M CARPUL 13:15 | PROVIDERS: ATTEND Specialist | DX: C34.90 Malignant neoplasm of unspecified part of unspecified bronchus or lung (principal); Z79.811 Long term (current) use of aromatase inhibitors; Z79.899 Other long term (current) drug therapy ==

== ENCOUNTER → 2024-07-04 | Outpatient (CLI) | payer MEDICARE, MEDICAID ==
[~2024-07-04] MED LIST changes: +PROC10TA5 PO
== END ==
LOC: M RAD 11:24
PROVIDERS: ATTEND General Practice
DX: C34.12 Malignant neoplasm of upper lobe, left bronchus or lung (principal); C34.11 Malignant neoplasm of upper lobe, right bronchus or lung

== ENCOUNTER → 2024-07-11 | Outpatient (CLI) | payer MEDICARE, MEDICAID | LOC: M ONCR 10:32 | PROVIDERS: ATTEND General Practice | DX: C34.12 Malignant neoplasm of upper lobe, left bronchus or lung (principal); Z71.2 Person consulting for explanation of examination or test findings; Z92.3 Personal history of irradiation; Z79.620 Long term (current) use of immunosuppressive biologic; F17.218 Nicotine dependence, cigarettes, with other nicotine-induced disorders; Z91.041 Radiographic dye allergy status; Z79.1 Long term (current) use of non-steroidal anti-inflammatories (NSAID); Z79.82 Long term (current) use of aspirin; Z79.890 Hormone replacement therapy; Z79.899 Other long term (current) drug therapy ==

== ENCOUNTER → 2024-12-11 | Outpatient (CLI) | payer MEDICARE, MEDICAID ==
[~2024-12-11] MED LIST changes: +LISI40TA10 PO; -LISI40TA4 PO; +OMEP20.6 PO; -PRED50TA PO; +PRED50TA57 PO
== END ==
LOC: M CARPUL 15:30
DX: C34.90 Malignant neoplasm of unspecified part of unspecified bronchus or lung (principal); Z79.899 Other long term (current) drug therapy; I08.3 Combined rheumatic disorders of mitral, aortic and tricuspid valves

== ENCOUNTER → 2025-01-03 | Outpatient (CLI) | payer MEDICARE, MEDICAID | LOC: M RAD 12:44 | PROVIDERS: ATTEND General Practice | DX: C34.12 Malignant neoplasm of upper lobe, left bronchus or lung (principal); C34.11 Malignant neoplasm of upper lobe, right bronchus or lung ==

== ENCOUNTER → 2025-01-10 | Outpatient (CLI) | payer MEDICARE, MEDICAID | LOC: M ONCR 10:00 | PROVIDERS: ATTEND General Practice | DX: C34.12 Malignant neoplasm of upper lobe, left bronchus or lung (principal); Z92.3 Personal history of irradiation; Z92.21 Personal history of antineoplastic chemotherapy; F17.210 Nicotine dependence, cigarettes, uncomplicated; Z91.041 Radiographic dye allergy status; Z79.891 Long term (current) use of opiate analgesic; Z79.82 Long term (current) use of aspirin; Z79.899 Other long term (current) drug therapy ==

== ENCOUNTER → 2025-04-01 | Outpatient (CLI) | payer MEDICARE, MEDICAID | LOC: M CARPUL 13:52 | DX: C34.90 Malignant neoplasm of unspecified part of unspecified bronchus or lung (principal); I08.8 Other rheumatic multiple valve diseases ==